=== PATIENT | male | born 1940 | race Caucasian/White ===

== ENCOUNTER → 2016-08-24 | Outpatient (CLI) | payer MEDICARE, BC ==
[~2016-08-24] MED LIST: ALLO100T PO; COLA100C PO; HYDR25TA35 PO; INSU100V3 SQ; MAGN200T2 PO; MYCO200S PO; NYSTPOW30 PO; OMEG1CAP53 PO; OXYC-360 PO; PRED10PA PO; PROT40TA PO; SULF1TAB47 PO; TACR1; TAMS5CAP OR; VALG450 PO; ZETI10TA5 OR; [UNRECOGNIZED DRUG - OTHER] PO
[2016-08-24 09:21] LABS: MICRO ALBUMIN RANDOM URINE RAW 11.3 MG/L (0.0-30.0)
== END ==
LOC: CLAB 08:16
DX: E11.65 Type 2 diabetes mellitus with hyperglycemia (principal)
CPT/HCPCS: 36415; 80053; 80061; 80197; 82043; 83036; 83735; 84100; 85025; 99211; G0463

== ENCOUNTER 2017-02-21 06:26 | Inpatient (IN) | payer MEDICARE, BC ==
[~2017-02-21] VITALS: Ht 175.3 cm; Wt 103.6 kg
[2017-02-21] VITALS (10 sets, daily range): BP systolic 98–180; BP diastolic 58–75; PULSE 56–115; RESP 16–20; TEMP 98.8–101.8; O2SAT 90–97
[2017-02-21] MEDS ORDERED: SODIUM CHLORIDE 0.9% FLUSH 10 ML FLUSH IV FLUSH PRN ×2 (07:15→10:30)
[2017-02-21] MEDS ORDERED: SODIUM CHLOR 0.9% 1000 ML INJ 1,000 ML IV ONE (07:38)
--- NOTE | 2017-02-21 07:56 | PD ---
HPI Chief Complaint: Cold / Flu Symptoms Time Seen by Provider: 07:38 Travel History International Travel<30 days: No Contact w/Intl Traveler<30days: No Traveled to known affect area: No History of Present Illness HPI 76-year-old male with history of diabetes, hypertension, end-stage renal disease , status post renal transplant, on tacrolimus, presents to the ER today because she he has had a few days history of discomfort at the right lower quadrant transplant site, nausea, vomiting, fevers, and cloudy looking urine and dysuria. He has had recent UTIs according to patient's . Modifying Factors: None Associated Signs & Symptoms: Urinary symptoms, pain at renal transplant site, fevers, nausea and vomiting Risk Factors: Renal transplant PFSH Past Medical History Hx Anticoagulant Therapy: Yes (ASA) Arthritis: No Asthma: No Autoimmune Disease: No Heart Rhythm Problems: Yes (murmur per family) Cancer: Yes (prostate cancer treated with radiation, Squamous cell Cancer) Cardiovascular Problems: Yes (Aortic Valve replaced, Stent x1, HTN) High Cholesterol: Yes Chemotherapy: No Chest Pain: No Congestive Heart Failure: No COPD: No Cerebrovascular Accident: No Diabetes: Yes Patient Takes Glucophage: No Endocrine: Yes (partial para thyroidectomy in 12/1986) Gastrointestinal Disorders: Yes (not since the avm small bowel repair in 01/2012 ) GERD: No Genitourinary: Yes (prostate cancer in past ) Hiatal Hernia: No Hypertension: Yes Immune Disorder: No Kidney Stones: No Medical other: Yes (ESRD last HD 04/15/2012) Musculoskeletal: No Neurologic: Yes (Mohs surgery L frontal/Parietal, Mohs surgery various facial sites. ) Psychiatric: No Reproductive: No Respiratory: No Migraines: No Radiation Therapy: Yes Renal Failure: Yes Seizures: No Sickle Cell Disease: No Sleep Apnea: No Thyroid Disease: Yes (see above partial para throidectomy 12/1986) Ulcer: No Tetanus Vaccination: > 5 Years Influenza Vaccination: Yes Past Surgical History Abdominal Surgery: Yes ( KIDNEY TRANSPLANT 2011, endoscoptic repair AVM small bowel ) AICD: No Arteriovenous Shunt: No Cardiac Surgery: Yes (metal cardiac stent placed in 10/01, Aortic valve replacement) Ear Surgery: No Endocrine Surgery: Yes (partial para thyroidectomy) Eye Surgery: No Genitourinary Surgery: Yes (completed prostate ca treatment in 2007 - ) Gynecologic Surgery: No Insulin Pump: No Joint Replacement: No Oral Surgery: No Pacemaker: No Thoracic Surgery: Yes (partial para thyroid edectomy ) Other Surgery: Yes (L ARM AV FISTULA) Social History Alcohol Use: Yes (occaisonaly) Tobacco Use: No Substance Use: No Allergies-Medications (Allergen,Severity, Reaction): Uncoded Allergies: "BLUE CRABS" (Allergy, Severe, Rash, 04/14/12) Reported Meds & Prescriptions Reported Meds & Active Scripts Active Reported [Occuvite Lutein] 2 Mg PO DAILY Vitamin D-1000 (Cholecalciferol) 1,000 Unit Tab 1,000 Units PO DAILY Aspirin 81 Mg Chew 81 Mg CHEW DAILY Pantoprazole (Pantoprazole Sodium) 40 Mg Tab 40 Mg PO DAILY Calcitriol 0.25 Mcg Cap 0.25 Mcg PO DAILY Flomax (Tamsulosin HCl) 0.4 Mg Cap 0.4 Mg PO BID Lovaza (Jqkib-[id number] Ethyl Esters) 1 Gm Cap 1 Gm PO BID Zetia (Ezetimibe) 10 Mg Tab 10 Mg PO HS Furosemide 40 Mg Tab 40 Mg PO DIRECTED Hydralazine (Hydralazine HCl) 100 Mg Tab 50 Mg PO BID Take with meals Losartan (Losartan Potassium) 25 Mg Tab 25 Mg PO DAILY Amlodipine (Amlodipine Besylate) 10 Mg Tab 10 Mg PO DAILY Bystolic (Nebivolol) 5 Mg Tab 5 Mg PO DAILY Prednisone 5 Mg Tab 5 Mg PO DAILY Mycophenolate (Mycophenolate Mofetil) 500 Mg Tab 500 Mg PO BID Tacrolimus 1 Mg Cap 1 Mg PO DAILY Tacrolimus 0.5 Mg Cap 0.5 Mg PO HS Humulin 70-30 Kwikpen Pen Inj (Insulin NPH Isophane-Reg (Human) 70-30 Inj) 300 Unit/3 Ml Pen 20-25 Unit SQ BID Review of Systems Except as stated in HPI: all other systems reviewed are Neg Physical Exam Narrative GENERAL: Well-developed elderly white male patient currently in mild distress. Awake and oriented 3. SKIN: Focused skin assessment warm/dry. HEAD: Atraumatic. Normocephalic. EYES: Pupils equal and round. No scleral icterus. No injection or drainage. ENT: No nasal bleeding or discharge. Mucous membranes pink and moist. NECK: Trachea midline. No JVD. CARDIOVASCULAR: Regular rate and rhythm. No murmur appreciated. RESPIRATORY: No accessory muscle use. Clear to auscultation. Breath sounds equal bilaterally. GASTROINTESTINAL: Abdomen soft, mild right lower quadrant tenderness without guarding or rebound, nondistended. Hepatic and splenic margins not palpable. MUSCULOSKELETAL: No obvious deformities. No clubbing. No cyanosis. No edema. NEUROLOGICAL: Awake and alert. No obvious cranial nerve deficits. Motor grossly within normal limits. Normal speech. PSYCHIATRIC: Appropriate mood and affect; insight and judgment normal. Data Data Last Documented VS Vital Signs Date Time Temp Pulse Resp B/P (MAP) Pulse Ox O2 Delivery O2 Flow Rate FiO2 02/21/17 08:02 100.1 56 16 125/58 (80) 94 Room Air Orders Orders Complete Blood Count With Diff (02/21/17 07:10) Comprehensive Metabolic Panel (02/21/17 07:10) Urinalysis - C+S If Indicated (02/21/17 07:10) Iv Access Insert/Monitor (02/21/17 07:10) Ecg Monitoring (02/21/17 07:10) Oximetry (02/21/17 07:10) Sodium Chloride 0.9% Flush (Ns Flush) (02/21/17 07:15) Lactic Acid Sepsis Protocol (02/21/17 07:38) Blood Culture (02/21/17 07:38) Blood Glucose (02/21/17 07:38) Oxygen Administration (02/21/17 07:38) Sodium Chlor 0.9% 1000 Ml Inj (Ns 1000 M (02/21/17 07:38) Tacrolimus ([id number]) Prograf (02/21/17 07:49) Urine Culture (02/21/17 07:45) Piperacil-Tazo 4.5 Gm Premix (Zosyn 4.5 (02/21/17 08:11) Admit Order (Ed Use Only) (02/21/17 10:08) Labs Laboratory Tests Test 02/21/17 07:45 02/21/17 07:58 White Blood Count 9.0 TH/MM3 Red Blood Count 3.98 MIL/MM3 Hemoglobin 11.8 GM/DL Hematocrit 36.8 % Mean Corpuscular Volume 92.5 FL Mean Corpuscular Hemoglobin 29.7 PG Mean Corpuscular Hemoglobin Concent 32.1 % Red Cell Distribution Width 15.8 % Platelet Count 130 TH/MM3 Mean Platelet Volume 7.1 FL Neutrophils (%) (Auto) 88.3 % Lymphocytes (%) (Auto) 2.1 % Monocytes (%) (Auto) 9.0 % Eosinophils (%) (Auto) 0.2 % Basophils (%) (Auto) 0.4 % Neutrophils # (Auto) 7.9 TH/MM3 Lymphocytes # (Auto) 0.2 TH/MM3 Monocytes # (Auto) 0.8 TH/MM3 Eosinophils # (Auto) 0.0 TH/MM3 Basophils # (Auto) 0.0 TH/MM3 CBC Comment DIFF FINAL Differential Comment Urine Color YELLOW Urine Turbidity CLOUDY Urine pH 5.5 Urine Specific [place] 1.017 Urine Protein 100 mg/dL Urine Glucose (UA) NEG mg/dL Urine Ketones NEG mg/dL Urine Occult Blood MOD Urine Nitrite NEG Urine Bilirubin NEG Urine Urobilinogen LESS THAN 2.0 MG/DL Urine Leukocyte Esterase LARGE Urine RBC /hpf Urine WBC /hpf Urine WBC Clumps MOD Urine Amorphous Sediment OCC Urine Bacteria MOD /hpf Microscopic Urinalysis Comment CULTURE INDICATED Blood Urea Nitrogen 37 MG/DL Creatinine 2.36 MG/DL Random Glucose 99 MG/DL Total Protein 6.1 GM/DL Albumin 3.1 GM/DL Calcium Level 8.3 MG/DL Alkaline Phosphatase 45 U/L Aspartate Amino Transf (AST/SGOT) 20 U/L Alanine Aminotransferase (ALT/SGPT) 14 U/L Total Bilirubin 1.7 MG/DL Sodium Level 139 MEQ/L Potassium Level 4.1 MEQ/L Chloride Level 107 MEQ/L Carbon Dioxide Level 22.3 MEQ/L Anion Gap 10 MEQ/L Estimat Glomerular Filtration Rate 27 ML/MIN Lactic Acid Level 0.9 mmol/L [facility] Medical Decision Making Medical Screen Exam Complete: Yes Emergency Medical Condition: Yes Medical Record Reviewed: Yes Interpretation(s) Laboratory Tests Test 02/21/17 07:45 02/21/17 07:58 Red Blood Count 3.98 MIL/MM3 (4.50-5.90) Hemoglobin 11.8 GM/DL (13.0-17.0) Hematocrit 36.8 % (39.0-51.0) Platelet Count 130 TH/MM3 (150-450) Neutrophils (%) (Auto) 88.3 % (16.0-70.0) Lymphocytes (%) (Auto) 2.1 % (9.0-44.0) Monocytes (%) (Auto) 9.0 % (0.0-8.0) Neutrophils # (Auto) 7.9 TH/MM3 (1.8-7.7) Lymphocytes # (Auto) 0.2 TH/MM3 (1.0-4.8) Urine Turbidity CLOUDY (CLEAR) Urine Protein 100 mg/dL (NEG-TRACE) Urine Occult Blood MOD (NEG) Urine Leukocyte Esterase LARGE (NEG) Urine WBC Clumps MOD (NONE) Urine Bacteria MOD /hpf (NONE) Blood Urea Nitrogen 37 MG/DL (7-18) Creatinine 2.36 MG/DL (0.60-1.30) Total Protein 6.1 GM/DL (6.4-8.2) Albumin 3.1 GM/DL (3.4-5.0) Calcium Level 8.3 MG/DL (8.5-10.1) Total Bilirubin 1.7 MG/DL (0.2-1.0) Estimat Glomerular Filtration Rate 27 ML/MIN (>89) Differential Diagnosis Dehydration versus metabolic issues versus UTI versus sepsis versus transplant rejection Narrative Course Lab work shows worsening renal function and UTI. Truck limits level has been sent. Considering his history of renal transplant, IV antibiotics were initiated after cultures were done and my plan would be to admit the patient for further treatment. Case was discussed with Dr. Monreal for admission. Diagnosis Primary Impression: UTI (urinary tract infection) Additional Impressions: Acute renal failure Kidney transplant status, cadaveric Admitting Information Admitting Physician Requests: Tomy Wright MD Feb 21, 2017 07:56
[2017-02-21 08:00] LABS: AUTOMATED NEUTROPHIL # 7.9 TH/MM3 (1.8-7.7); BASOPHIL % 0.4 % (0.0-2.0); EOSINOPHIL % 0.2 % (0.0-4.0); HEMATOCRIT 36.8 % (39.0-51.0); HEMO FLAGS DIFF FINAL; LYMPH % 2.1 % (9.0-44.0); LYMPHOCYTE # 0.2 TH/MM3 (1.0-4.8); MEAN CELL VOLUME 92.5 FL (80.0-100.0); MEAN CORPUSCULAR HEMOGLOBIN 29.7 PG (27.0-34.0); MEAN CORPUSCULAR HGB CONC 32.1 % (32.0-36.0); NEUT % 88.3 % (16.0-70.0); PLATELET COUNT 130 TH/MM3 (150-450); RED BLOOD COUNT 3.98 MIL/MM3 (4.50-5.90); RED CELL DISTRIBUTION WIDTH 15.8 % (11.6-17.2)
[2017-02-21 08:08] LABS: BACTERIA, URINE MOD /hpf; BLOOD, URINE MOD (NEG); GLUCOSE,URINE NEG (NEG); KETONE, URINE NEG (NEG); NITRITE,URINE NEG (NEG); PH, URINE 5.5 (5.0-8.5); URINE COLOR YELLOW (YELLW/STRAW)
[2017-02-21 08:09] LABS: COMMENT (UR) CULTURE INDICATED; CULTURE IF INDICATED CULTURE INDICATED
[2017-02-21] MEDS ORDERED: PIPERACIL-TAZO 4.5 GM PREMIX 100 ML IV STA (08:11)
[2017-02-21 08:14] LABS: ANION GAP 10 MEQ/L (5-15); AST (GOT) 20 U/L (15-37); BICARBONATE 22.3 MEQ/L (21.0-32.0); BLOOD UREA NITROGEN 37 MG/DL (7-18); CHLORIDE 107 MEQ/L (98-107); GLOMERULAR FILTRATION RATE 27 ML/MIN (>89); POTASSIUM 4.1 MEQ/L (3.5-5.1); SODIUM (NA) 139 MEQ/L (136-145)
[2017-02-21 08:15] LABS: ALT (GPT) 14 U/L (12-78)
[2017-02-21 08:17] LABS: ALKALINE PHOSPHATASE 45 U/L (45-117); TOTAL BILIRUBIN ADULT 1.7 MG/DL (0.2-1.0)
[2017-02-21] MEDS ORDERED: OMEG1CAP53 PO (08:27)
[2017-02-21] MEDS ORDERED: FURO40TA PO (08:27)
[2017-02-21] MEDS ORDERED: AMLO10TA2 PO (08:27)
[2017-02-21] MEDS ORDERED: TACR1CAP PO (08:27)
[2017-02-21] MEDS ORDERED: LOSA25TA PO (08:27)
[2017-02-21] MEDS ORDERED: VITA1000 PO (08:27)
[2017-02-21] MEDS ORDERED: TAMS5CAP PO (08:27)
[2017-02-21] MEDS ORDERED: OCCUVITE LUTEIN PO (08:27)
[2017-02-21] MEDS ORDERED: CALC0.25 PO (08:27)
[2017-02-21] MEDS ORDERED: PRED5TAB PO (08:27)
[2017-02-21] MEDS ORDERED: HYDR-3801 PO (08:27)
[2017-02-21] MEDS ORDERED: MYCO500T PO (08:27)
[2017-02-21] MEDS ORDERED: PANT40TA3 PO (08:27)
[2017-02-21] MEDS ORDERED: ZETI10TA5 PO (08:27)
[2017-02-21] MEDS ORDERED: TACR0.5C PO (08:27)
[2017-02-21] MEDS ORDERED: BYST5TAB2 PO (08:27)
[2017-02-21] MEDS ORDERED: ASPI81CH CHEW (08:27)
[2017-02-21] MEDS ORDERED: INSU1INJ3 SQ (08:27)
[2017-02-21] MEDS ORDERED: VANCOMYCIN INJ 1,000 MG in SODIUM CHLOR 0.9% 250 ML INJ 250 ML IV ONE (10:30)
[2017-02-21] MEDS ORDERED: NALOXONE HCL 0.4 MG/ML AMP IV PRN (10:30)
[2017-02-21] MEDS ORDERED: GLUCAGON 1 MG/ML VIAL OTHER PRN (10:30)
[2017-02-21] MEDS ORDERED: LACTULOSE SYRUP 20 GM/30 ML CUP PO PRN (10:30)
[2017-02-21] MEDS ORDERED: oxyCODONE/ACETAMINOPHEN 5 MG/325 MG TAB PO PRN (10:30)
[2017-02-21] MEDS ORDERED: DEXTROSE 50% IN WATER 50 ML VIAL(D50) IV PRN (10:30)
[2017-02-21] MEDS ORDERED: BISACODYL 10 MG SUPP RECTAL PRN (10:30)
[2017-02-21] MEDS ORDERED: SENNOSIDES 8.6 MG TAB PO PRN (10:30)
[2017-02-21] MEDS ORDERED: PROCHLORPERAZINE 25 MG SUPP RECTAL PRN (10:30)
[2017-02-21] MEDS ORDERED: MAGNESIUM HYDROXIDE SUSP 30 ML CUP PO PRN (10:30)
[2017-02-21] MEDS ORDERED: ACETAMINOPHEN 325 MG TAB PO PRN (10:30)
[2017-02-21] MEDS ORDERED: ONDANSETRON HCL 4 MG/2 ML VIAL IVP PRN (10:30)
[2017-02-21] MEDS ORDERED: ZOLPIDEM TARTRATE 5 MG TAB PO PRN (10:30)
[2017-02-21] MEDS ORDERED: Vancomycin Consult Pharmacy 1 EA OTHER SCH (10:30)
[2017-02-21] MEDS ORDERED: oxyCODONE/ACETAMINOPHEN 10 MG/325 MG TAB PO PRN (10:30)
[2017-02-21] MEDS ORDERED: MORPHINE SULFATE 4 MG/ML INJ IV PRN ×2 (10:30)
--- NOTE | 2017-02-21 10:53 | HHI.HP ---
[facility] No Primary Care Physician Admission Diagnosis UTI/acute renal failure/kidney transplant Diagnoses: (1) Diabetes Diagnosis: Secondary (2) Hypertension Diagnosis: Secondary (3) Acute renal failure Diagnosis: Secondary (4) UTI (urinary tract infection) Diagnosis: Principal (5) Kidney transplant status, cadaveric Diagnosis: Principal Chief Complaint: Feeling lousy flu-like symptoms Travel History International Travel<30 Days: No Contact w/Intl Traveler <30 Da: No Traveled to Known Affected Are: No History of Present Illness 76-year-old male with history of diabetes, hypertension, end-stage renal disease , status post renal transplant, on tacrolimus, for chronic immunosuppression presents to the ER today because he has had a few days history of discomfort at the right lower quadrant transplant site, nausea, vomiting, fevers, and cloudy looking urine and dysuria. He has had recent UTIs according to patient' s . Modifying Factors: None Associated Signs & Symptoms: Urinary symptoms, pain at renal transplant site, fevers, nausea and vomiting Risk Factors: Renal transplant Found to have a urinary tract infection again we will dose with Zosyn and vancomycin with pharmacy to dose. We'll consult nephrology. And will continue to monitor here throughout the admission for any other issues that may arise will place on fluid rehydration and monitor Review of Systems Constitutional: COMPLAINS OF: Diaphoretic episodes, Fatigue, Fever, Chills, DENIES: Weight gain, Weight loss, Dizziness Endocrine: DENIES: Heat/cold intolerance, Polydipsia, Polyuria, Polyphagia Eyes: DENIES: Blurred vision, Diplopia, Eye inflammation, Eye pain, Vision loss Ears, nose, mouth, throat: DENIES: Tinnitus, Hearing loss, Vertigo, Nasal discharge, Odynophagia Respiratory: DENIES: Apneas, Cough, Snoring, Wheezing, Hemoptysis, Sputum production Cardiovascular: DENIES: Chest pain, Palpitations, Syncope, Dyspnea on Exertion , PND Gastrointestinal: COMPLAINS OF: Abdominal pain (right lower quadrant pain over where the kidney transplant list), DENIES: Black stools, Bloody stools, Constipation, Diarrhea, Nausea Genitourinary: DENIES: Sexual dysfunction, Urinary frequency, Urinary incontinence Musculoskeletal: DENIES: Joint pain, Muscle aches, Stiffness, Joint Swelling Integumentary: DENIES: Abnormal pigmentation, Nail changes Hematologic/lymphatic: DENIES: Bruising, Lymphadenopathy Immunologic/allergic: DENIES: Eczema, Urticaria Neurologic: DENIES: Abnormal gait, Headache, Localized weakness, Paresthesias, Seizures, Speech Problems Psychiatric: DENIES: Anxiety, Confusion, Mood changes, Depression, Hallucinations Past Family Social History Past Medical History Chronic aspirin History of aortic valve replacement bioprosthetic History of coronary disease with stent History of hypertension history of hypercholesterolemia. 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 Hypertension History of end-stage renal disease status post kidney transplant in History of Mohs surgery on the left frontal and parietal and Mohs surgery various facial sites due to skin cancer History of radiation therapy History of renal failure status post kidney transplant Past Surgical History History of kidney transplant 2011 Endoscopic repair of an AVM in the small bowel Cardiac stenting September 2008 Aortic valve replacement Partial parathyroidectomy History of left arm AV fistula creation Reported Medications Reported Meds & Active Scripts Active Reported [Occuvite Lutein] 2 Mg PO DAILY Vitamin D-1000 (Cholecalciferol) 1,000 Unit Tab 1,000 Units PO DAILY Aspirin 81 Mg Chew 81 Mg CHEW DAILY Pantoprazole (Pantoprazole Sodium) 40 Mg Tab 40 Mg PO DAILY Calcitriol 0.25 Mcg Cap 0.25 Mcg PO DAILY Flomax (Tamsulosin HCl) 0.4 Mg Cap 0.4 Mg PO BID Lovaza (Sfxqh-8-Gpcc Ethyl Esters) 1 Gm Cap 1 Gm PO BID Zetia (Ezetimibe) 10 Mg Tab 10 Mg PO HS Furosemide 40 Mg Tab 40 Mg PO DIRECTED Hydralazine (Hydralazine HCl) 100 Mg Tab 50 Mg PO BID Take with meals Losartan (Losartan Potassium) 25 Mg Tab 25 Mg PO DAILY Amlodipine (Amlodipine Besylate) 10 Mg Tab 10 Mg PO DAILY Bystolic (Nebivolol) 5 Mg Tab 5 Mg PO DAILY Prednisone 5 Mg Tab 5 Mg PO DAILY Mycophenolate (Mycophenolate Mofetil) 500 Mg Tab 500 Mg PO BID Tacrolimus 1 Mg Cap 1 Mg PO DAILY Tacrolimus 0.5 Mg Cap 0.5 Mg PO HS Humulin 70-30 Kwikpen Pen Inj (Insulin NPH Isophane-Reg (Human) 70-30 Inj) 300 Unit/3 Ml Pen 20-25 Unit SQ BID Allergies: Uncoded Allergies: "BLUE CRABS" (Allergy, Severe, Rash, 04/14/12) Active Ordered Medications Current Medications Sodium Chloride (NS Flush) 2 ml UNSCH PRN IV FLUSH FLUSH AFTER USING IV ACCESS ; Start 02/21/17 at 07:15 Sodium Chloride 1,000 ml @ 1,000 mls/hr Q1H ONCE IV Last administered on 08:02; Start 02/21/17 at 07:38; Stop 02/21/17 at 08:37; Status DC Piperacillin Sod/ Tazobactam Sod 100 ml @ 200 mls/hr ONCE STAT IV Last administered on 02/21/17 08:31; Start 02/21/17 at 08:11; Stop 02/21/17 at 08:40 ; Status DC Dextrose (D50w (Vial) Inj) 50 ml UNSCH PRN IV HYPOGLYCEMIA-SEE COMMENTS; Start 02/21/17 at 10:30 Glucagon (Glucagon Inj) 1 mg UNSCH PRN OTHER HYPOGLYCEMIA-SEE COMMENTS; Start 02/21/17 at 10:30 Insulin Aspart (NovoLOG SUPPLEMENTAL SCALE) 1 ACHS SLIDING SCALE SQ ; Start at 11:00 Sodium Chloride 1,000 ml @ 100 mls/hr Q10H IV ; Start 02/21/17 at 10:19; Status UNV Sodium Chloride (NS Flush) 2 ml UNSCH PRN IV FLUSH FLUSH AFTER USING IV ACCESS ; Start 02/21/17 at 10:30; Status UNV Sodium Chloride (NS Flush) 2 ml BID IV FLUSH ; Start 02/21/17 at 21:00; Status UNV Acetaminophen (Tylenol) 650 mg Q4H PRN PO TEMP > 100.4; Start 02/21/17 at 10:30 ; Status UNV Ondansetron HCl (Zofran Inj) 4 mg Q6H PRN IVP NAUSEA OR VOMITING; Start at 10:30; Status UNV Prochlorperazine (Compazine Supp) 25 mg Q12H PRN DE NAUSEA OR VOMITING; Start 02/21/17 at 10:30; Status UNV Zolpidem Tartrate (Ambien) 5 mg HS PRN PO INSOMNIA; Start 02/21/17 at 10:30; Status UNV Acetaminophen (Tylenol) 650 mg Q6H PRN PO PAIN SCALE 1 TO 2; Start 02/21/17 at 10:30; Status UNV Oxycodone/ Acetaminophen (Percocet 5-325 Mg) 1 tab Q6H PRN PO PAIN SCALE 3 TO 5; Start 02/21/17 at 10:30; Status UNV Oxycodone/ Acetaminophen (Percocet 10-325 Mg) 1 tab Q6H PRN PO PAIN SCALE 6 TO 10; Start 02/21/17 at 10:30; Status UNV Morphine Sulfate (Morphine Inj) 2 mg Q3H PRN IV Pain 3-5; if unable to take PO ; Start 02/21/17 at 10:30; Status UNV Morphine Sulfate (Morphine Inj) 4 mg Q3H PRN IV Pain 6-10;if unable to take PO ; Start 02/21/17 at 10:30; Status UNV Naloxone HCl (Narcan Inj) 0.4 mg UNSCH PRN IV SEE LABEL COMMENTS; Start at 10:30; Status UNV Senna/Docusate Sodium (Lena-Colace) 1 tab BID PO ; Start 02/21/17 at 21:00; Status UNV Magnesium Hydroxide (Milk Of Magnesia Liq) 30 ml Q12H PRN PO MILD - MODERATE CONSTIPATION; Start 02/21/17 at 10:30; Status UNV Sennosides (Senokot) 17.2 mg Q12H PRN PO MODERATE - SEVERE CONSTIPATION; Start 02/21/17 at 10:30; Status UNV Bisacodyl (Dulcolax Supp) 10 mg DAILY PRN RECTAL SEVERE CONSITIPATION; Start at 10:30; Status UNV Lactulose (Lactulose Liq) 30 ml DAILY PRN PO SEVERE CONSITIPATION; Start at 10:30; Status UNV Amlodipine Besylate (Norvasc) 10 mg DAILY PO ; Start 02/22/17 at 09:00; Status UNV Aspirin (Aspirin Chew) 81 mg DAILY CHEW ; Start 02/22/17 at 09:00; Status UNV Calcitriol (Rocaltrol) 0.25 mcg DAILY PO ; Start 02/22/17 at 09:00; Status UNV Cholecalciferol (Vitamin D3) 1,000 units DAILY PO ; Start 02/22/17 at 09:00; Status UNV EZETIMIBE (Zetia) 10 mg HS PO ; Start 02/21/17 at 21:00; Status UNV Furosemide (Lasix) 40 mg DAILY PO ; Start 02/22/17 at 09:00; Status UNV Hydralazine HCl (Apresoline) 50 mg BID PO ; Start 02/21/17 at 21:00; Status UNV Mycophenolate Mofetil (Cellcept) 500 mg BID PO ; Start 02/21/17 at 21:00; Status UNV Nebivolol (Bystolic) 5 mg DAILY PO ; Start 02/22/17 at 09:00; Status UNV Pantoprazole Sodium (Protonix) 40 mg DAILY PO ; Start 02/22/17 at 09:00; Status UNV Prednisone (Deltasone) 5 mg DAILY PO ; Start 02/22/17 at 09:00; Status UNV Tacrolimus (Prograf) 0.5 mg HS PO ; Start 02/21/17 at 21:00; Status UNV Tacrolimus (Prograf) 1 mg DAILY PO ; Start 02/22/17 at 09:00; Status UNV Tamsulosin HCl (Flomax) 0.4 mg BID PO ; Start 02/21/17 at 21:00; Status UNV Non-Formulary Medication 20 unit BID SQ ; Start 02/21/17 at 21:00; Status UNV Non-Formulary Medication 1 gm BID PO ; Start 02/21/17 at 21:00; Status UNV Non-Formulary Medication 2 mg DAILY PO ; Start 02/22/17 at 09:00; Status UNV Family History Hypertension and diabetes heart disease Social History Denies any tobacco seldom alcohol denies any illicit Retired from [employer] Physical Exam Vital Signs Vital Signs Date Time Temp Pulse Resp B/P (MAP) Pulse Ox O2 Delivery O2 Flow Rate FiO2 02/21/17 08:02 100.1 56 16 125/58 (80) 94 Room Air 02/21/17 07:50 16 94 Room Air 02/21/17 06:29 100.3 115 16 157/64 (95) 90 Room Air Physical Exam GENERAL: This is a well-nourished, well-developed patient, in no apparent distress. SKIN: No rashes, ecchymoses or lesions. Cool and dry. HEAD: Atraumatic. Normocephalic. No temporal or scalp tenderness. EYES: Pupils equal round and reactive. Extraocular motions intact. No scleral icterus. No injection or drainage. ENT: Nose without bleeding, purulent drainage or septal hematoma. Throat without erythema, tonsillar hypertrophy or exudate. Uvula midline. Airway patent. Tongue is midline NECK: Trachea midline. No JVD or lymphadenopathy. Supple, nontender, no meningeal signs. CARDIOVASCULAR: Regular rate and rhythm without murmurs, gallops, or rubs. S1 and S2 no S3 or S4 no thrill RESPIRATORY: Clear to auscultation. Breath sounds equal bilaterally. No wheezes , rales, or rhonchi. GASTROINTESTINAL: Abdomen soft, non-tender, nondistended. No hepato-splenomegaly , or palpable masses. No guarding. Some tenderness in the right lower quadrant where his kidney transplant is MUSCULOSKELETAL: Extremities without clubbing, cyanosis, or edema. No joint tenderness, effusion, or edema noted. No calf tenderness. Negative Homans sign bilaterally. NEUROLOGICAL: Awake and alert. Cranial nerves II through XII intact. Motor and sensory grossly within normal limits. Five out of 5 muscle strength in all muscle groups. Normal speech. Insight and judgment are good mood and behavior are appropriate Laboratory Laboratory Tests Test 02/21/17 07:45 02/21/17 07:58 White Blood Count 9.0 Red Blood Count 3.98 Hemoglobin 11.8 Hematocrit 36.8 Mean Corpuscular Volume 92.5 Mean Corpuscular Hemoglobin 29.7 Mean Corpuscular Hemoglobin Concent 32.1 Red Cell Distribution Width 15.8 Platelet Count 130 Mean Platelet Volume 7.1 Neutrophils (%) (Auto) 88.3 Lymphocytes (%) (Auto) 2.1 Monocytes (%) (Auto) 9.0 Eosinophils (%) (Auto) 0.2 Basophils (%) (Auto) 0.4 Neutrophils # (Auto) 7.9 Lymphocytes # (Auto) 0.2 Monocytes # (Auto) 0.8 Eosinophils # (Auto) 0.0 Basophils # (Auto) 0.0 CBC Comment DIFF FINAL Differential Comment Urine Color YELLOW Urine Turbidity CLOUDY Urine pH 5.5 Urine Specific Randall 1.017 Urine Protein 100 Urine Glucose (UA) NEG Urine Ketones NEG Urine Occult Blood MOD Urine Nitrite NEG Urine Bilirubin NEG Urine Urobilinogen LESS THAN 2.0 Urine Leukocyte Esterase LARGE Urine RBC Urine WBC Urine WBC Clumps MOD Urine Amorphous Sediment OCC Urine Bacteria MOD Microscopic Urinalysis Comment CULTURE INDICATED Blood Urea Nitrogen 37 Creatinine 2.36 Random Glucose 99 Total Protein 6.1 Albumin 3.1 Calcium Level 8.3 Alkaline Phosphatase 45 Aspartate Amino Transf (AST/SGOT) 20 Alanine Aminotransferase (ALT/SGPT) 14 Total Bilirubin 1.7 Sodium Level 139 Potassium Level 4.1 Chloride Level 107 Carbon Dioxide Level 22.3 Anion Gap 10 Estimat Glomerular Filtration Rate 27 Lactic Acid Level 0.9 Date/Time Source Procedure Growth Status 02/21/17 07:55 Blood Peripheral Aerobic Blood Culture Pending Received 02/21/17 07:55 Blood Peripheral Anaerobic Blood Culture Pending Received 02/21/17 07:45 Urine Clean Catch Urine Culture Pending Received Result Diagram: 02/21/17 0745 02/21/17 0745 Caprini VTE Risk Assessment Caprini VTE Risk Assessment: Mod/High Risk (score >= 2) Caprini Risk Assessment Model Point Value = 1 Point Value = 2 Point Value = 3 Point Value = 5 Age 41-60 Minor surgery BMI > 25 kg/m2 Swollen legs Varicose veins or History of unexplained or recurrent spontaneous Oral contraceptives or hormone replacement Sepsis (< 1 month) Serious lung disease, including pneumonia (< 1 month) Abnormal pulmonary function Acute myocardial infarction Congestive heart failure (< 1 month) History of inflammatory bowel disease Medical patient at bed rest Age 61-74 Arthroscopic surgery Major open surgery (> 45 min) Laparoscopic surgery (> 45 min) Malignancy Confined to bed (> 72 hours) Immobilizing plaster cast Central venous access Age >= 75 History of VTE Family history of VTE Factor V Leiden Prothrombin [id number] Lupus anticoagulant Anticardiolipin antibodies Elevated serum homocysteine Heparin-induced thrombocytopenia Other congenital or acquired thrombophilia Stroke (< 1 month) Elective arthroplasty Hip, pelvis, or leg fracture Acute spinal cord injury (< 1 month) Prophylaxis Regimen Total Risk Factor Score Risk Level Prophylaxis Regimen 0-1 Low Early ambulation 2 Moderate Order ONE of the following: *Sequential Compression Device (SCD) *Heparin 5000 units SQ BID 3-4 Higher Order ONE of the following medications: *Heparin 5000 units SQ TID *Enoxaparin/Lovenox 40 mg SQ daily (WT < 150 kg, CrCl > 30 mL/min) *Enoxaparin/Lovenox 30 mg SQ daily (WT < 150 kg, CrCl > 10-29 mL/min) *Enoxaparin/Lovenox 30 mg SQ BID (WT < 150 kg, CrCl > 30 mL/min) AND/OR *Sequential Compression Device (SCD) 5 or more Highest Order ONE of the following medications: *Heparin 5000 units SQ TID (Preferred with Epidurals) *Enoxaparin/Lovenox 40 mg SQ daily (WT < 150 kg, CrCl > 30 mL/min) *Enoxaparin/Lovenox 30 mg SQ daily (WT < 150 kg, CrCl > 10-29 mL/min) *Enoxaparin/Lovenox 30 mg SQ BID (WT < 150 kg, CrCl > 30 mL/min) AND *Sequential Compression Device (SCD) Assessment and Plan Problem List: (1) Hyperlipidemia ICD Code: E78.5 - Hyperlipidemia, unspecified (2) Kidney transplant status, cadaveric ICD Code: Z94.0 - Kidney transplant status Status: Acute (3) Hypertension ICD Code: I10 - Essential (primary) hypertension Status: Acute (4) Diabetes ICD Code: E11.9 - Type 2 diabetes mellitus without complications Status: Acute (5) UTI (urinary tract infection) ICD Code: N39.0 - Urinary tract infection, site not specified Status: Acute (6) Acute renal failure ICD Code: N17.9 - Acute kidney failure, unspecified Status: Acute (7) GERD (gastroesophageal reflux disease) ICD Code: K21.9 - Gastro-esophageal reflux disease without esophagitis (8) BPH (benign prostatic hyperplasia) ICD Code: N40.0 - Benign prostatic hyperplasia without lower urinary tract symptoms (9) Immunosuppression ICD Code: D89.9 - Disorder involving the immune mechanism, unspecified Assessment and Plan Patient is a 76-year-old gentleman. With a history of end-stage renal disease status post renal transplant in 2011. With diabetes and hypertension hyperlipidemia BPH chronic immunosuppression for the kidney transplant and diabetes presents for flulike symptoms found to have an active urinary tract infection. Urinary tract infection will be treated with home medications except for the arm. Continue on fluids and. Antibiotics with Zosyn and vancomycin with pharmacy to dose We'll consult nephrology. We'll get an ultrasound of the transplant kidney Continue on the chronic immunosuppression Diabetes mellitus. Continue on sliding scale coverage and Accu-Cheks before meals and at bedtime continue on NPH as at home Diabetic diet End-stage renal disease status post kidney transplant 2011 we'll check kidney ultrasound of the transplant kidney continue fluids and antibiotics hold any nephrotoxic drugs continue chronic immunosuppression Hypertension continue home medications except for ARB GERD continue on Protonix BPH continue on Flomax Hyperlipidemia continue on LOVAZA and Zetia Chronic immunosuppression with prednisone and mycophenolate and tacrolimus Await levels Consult nephrology Continue fluids and antibiotics and will follow throughout the admission We'll get case management physical therapy to eval and treat Code Status Full code Discussed Condition With Discussed with RN discussed with ER physician and discussed with patient Physician Certification 2 Midnight Certification Type: Admission for Inpatient Services Order for Inpatient Services The services are ordered in accordance with Medicare regulations or non- Medicare payer requirements, as applicable. In the case of services not specified as inpatient-only, they are appropriately provided as inpatient services in accordance with the 2-midnight benchmark. Estimated LOS (days): 3 3 days is the estimated time the patient will need to remain in the hospital, assuming treatment plan goals are met and no additional complications. Post-Hospital Plan: Not yet determined Ole Monreal DO Feb 21, 2017 10:53
[2017-02-21] MEDS: INSULIN ASPART SUPPLEMENTAL SCALE SQ SCH ×4 (11:00→21:47)
--- NOTE | 2017-02-21 13:07 | RADRPT ---
EXAM DATE/TIME: 02/21/2017 11:59 [facility] COMPARISON: US KIDNEY / TRANSPLANT, May 20, 2012, 15:02. INDICATIONS : Increased lab values. MEDICAL HISTORY : Hypercholesterolemia. Hypertension. Hearing loss. Skin cancer. Anticoagulant therapy. Heart murmur. Prostate cancer. Renal railure. Radiation therapy. Diabetes. Measles. Blood tr ansfusion. SURGICAL HISTORY : Coronary artery stent. Partial parathyroidectomy. Aortic valve replacement . Right lower quadrant renal transplant. Mohs surgery. Left AV fistula. Smal bowel repair. ENCOUNTER: Subsequent ACUITY: 3 days PAIN SCORE: 1/10 LOCATION: Right lower quadrant MEASUREMENTS: TRANSPLANT KIDNEY: 12.3 x 6.4 x 6.3 cm LOCATION: Right lower quadrant. ARCUATE ARTERIES RESISTIVE INDEX: Upper - 0.8 Mid - 0.8 Lower - 0.8 RA/EIA Ratio: 0.8 MAIN RENAL ARTERY VELOCITY: (cm/sec): 174 MAIN RENAL VEIN: Patent EXTERNAL ILIAC ARTERY VELOCITY (cm/sec): 224 * NORMAL DOPPLER FINDINGS Arcuate arteries - RI = 0.6 - 0.8 Renal artery = under 200 cm/sec Renal vein = May be monophasic with continuous flow or demonstrate some pulsatility with cardiac cycl e FINDINGS: TRANSPLANT KIDNEY: Normal cortical thickness and echotexture. No hydronephrosis, stone, or mass. No peritransplant fluid collection. URINARY BLADDER: Within normal limits given the degree of distension. CONCLUSION: There is no hydronephrosis.. I see no ancillary signs of rejection. Ole Godoy MD FACR on February 21, 2017 at 13:04 Board Certified Radiologist. This report was verified electronically.
[2017-02-21] MEDS: SODIUM CHLOR 0.9% 1000 ML INJ 1,000 ML IV SCH ×2 (13:31→20:19)
[2017-02-21] MEDS ORDERED: VANCOMYCIN INJ 1,500 MG in SODIUM CHLORID 0.9% 500 ML INJ 500 ML IV ONE (14:00)
--- NOTE | 2017-02-21 14:11 | PD.CONS ---
HPI Service Nephrology Consult Requested By Dr. Monreal Reason for Consult Kidney transplant Primary Care Physician No Primary Care Physician History of Present Illness Patient is a 76-year-old male with history of kidney transplant on 04/14/12, he has postoperative aortic valve stenosis and this was successfully repaired, she is admitted with urinary tract infection, from now some dysuria burning, his creatinine is slightly elevated and he is getting iv antibiotics and hydration he is maintained on prednisone 5 mg, prograf is 0.5 mg at night and 1 mg in the morning, cellcept 500 twice a day Review of Systems Constitutional: COMPLAINS OF: Fatigue Genitourinary: COMPLAINS OF: Dysuria Past Family Social History Allergies: Uncoded Allergies: "BLUE CRABS" (Allergy, Severe, Rash, 04/14/12) Past Medical History End-stage renal disease post kidney transplant in 2011 AV replacement Hypertension Kidney transplant Hyperlipidemia Diabetes GERD Past Surgical History Kidney transplant Cardiac surgery aVR History of endoscopy AV fistula Cardiac stent Reported Medications Reported Meds & Active Scripts Active Reported [Occuvite Lutein] 2 Mg PO DAILY Vitamin D-1000 (Cholecalciferol) 1,000 Unit Tab 1,000 Units PO DAILY Aspirin 81 Mg Chew 81 Mg CHEW DAILY Pantoprazole (Pantoprazole Sodium) 40 Mg Tab 40 Mg PO DAILY Calcitriol 0.25 Mcg Cap 0.25 Mcg PO DAILY Flomax (Tamsulosin HCl) 0.4 Mg Cap 0.4 Mg PO BID Lovaza (Hgotm-7-Bdfx Ethyl Esters) 1 Gm Cap 1 Gm PO BID Zetia (Ezetimibe) 10 Mg Tab 10 Mg PO HS Furosemide 40 Mg Tab 40 Mg PO DIRECTED Hydralazine (Hydralazine HCl) 100 Mg Tab 50 Mg PO BID Take with meals Losartan (Losartan Potassium) 25 Mg Tab 25 Mg PO DAILY Amlodipine (Amlodipine Besylate) 10 Mg Tab 10 Mg PO DAILY Bystolic (Nebivolol) 5 Mg Tab 5 Mg PO DAILY Prednisone 5 Mg Tab 5 Mg PO DAILY Mycophenolate (Mycophenolate Mofetil) 500 Mg Tab 500 Mg PO BID Tacrolimus 1 Mg Cap 1 Mg PO DAILY Tacrolimus 0.5 Mg Cap 0.5 Mg PO HS Humulin 70-30 Kwikpen Pen Inj (Insulin NPH Isophane-Reg (Human) 70-30 Inj) 300 Unit/3 Ml Pen 20-25 Unit SQ BID Active Ordered Medications Current Medications Medications (Trade) Dose Ordered Sig/Larry Route Start Time Stop Time Status Last Admin (D50w (Vial) Inj) 50 ml UNSCH PRN IV 02/21/17 10:30 (Glucagon Inj) 1 mg UNSCH PRN OTHER 02/21/17 10:30 (NovoLOG SUPPLEMENTAL SCALE) 1 ACHS SLIDING SCALE SQ 02/21/17 11:00 Sodium Chloride 1,000 ml @ 100 mls/hr Q10H IV 02/21/17 10:19 02/21/17 13:31 (NS Flush) 2 ml UNSCH PRN IV FLUSH 02/21/17 10:30 (NS Flush) 2 ml BID IV FLUSH 02/21/17 21:00 (Tylenol) 650 mg Q4H PRN PO 02/21/17 10:30 UNV (Zofran Inj) 4 mg Q6H PRN IVP 02/21/17 10:30 (Compazine Supp) 25 mg Q12H PRN KS 02/21/17 10:30 UNV (Ambien) 5 mg HS PRN PO 02/21/17 10:30 (Tylenol) 650 mg Q6H PRN PO 02/21/17 10:30 UNV (Percocet 5-325 Mg) 1 tab Q6H PRN PO 02/21/17 10:30 (Percocet 10-325 Mg) 1 tab Q6H PRN PO 02/21/17 10:30 (Morphine Inj) 2 mg Q3H PRN IV 02/21/17 10:30 (Morphine Inj) 4 mg Q3H PRN IV 02/21/17 10:30 (Narcan Inj) 0.4 mg UNSCH PRN IV 02/21/17 10:30 (Lena-Colace) 1 tab BID PO 02/21/17 21:00 (Milk Of Magnesia Liq) 30 ml Q12H PRN PO 02/21/17 10:30 (Senokot) 17.2 mg Q12H PRN PO 02/21/17 10:30 (Dulcolax Supp) 10 mg DAILY PRN RECTAL 02/21/17 10:30 (Lactulose Liq) 30 ml DAILY PRN PO 02/21/17 10:30 (Norvasc) 10 mg DAILY PO 02/22/17 09:00 (Aspirin Chew) 81 mg DAILY CHEW 02/22/17 09:00 (Rocaltrol) 0.25 mcg DAILY PO 02/22/17 09:00 (Vitamin D3) 1,000 units DAILY PO 02/22/17 09:00 (Zetia) 10 mg HS PO 02/21/17 21:00 (Apresoline) 50 mg BID PO 02/21/17 21:00 UNV (Cellcept) 500 mg BID PO 02/21/17 21:00 UNV (Bystolic) 5 mg DAILY PO 02/22/17 09:00 (Protonix) 40 mg DAILY PO 02/22/17 09:00 (Deltasone) 5 mg DAILY PO 02/22/17 09:00 (Prograf) 0.5 mg HS PO 02/21/17 21:00 UNV (Prograf) 1 mg DAILY PO 02/22/17 09:00 UNV (Flomax) 0.4 mg BID PO 02/21/17 21:00 UNV Non-Formulary Medication 20 unit BID SQ 02/21/17 21:00 UNV Non-Formulary Medication 1 gm BID PO 02/21/17 21:00 UNV Non-Formulary Medication 2 mg DAILY PO 02/22/17 09:00 UNV Piperacillin Sod/ Tazobactam Sod 50 ml @ 100 mls/hr Q8H IV 02/21/17 16:00 Pharmacy Profile Note 0 ml @ 0 mls/hr UNSCH OTHER 02/21/17 10:30 Vancomycin HCl 1500 mg/Sodium Chloride 515 ml @ 250 mls/hr ONCE ONCE IV 02/21/17 14:00 02/21/17 16:03 Family History Noncontributory Social History Denies smoking or alcohol use Physical Exam Vital Signs Vital Signs Date Time Temp Pulse Resp B/P (MAP) Pulse Ox O2 Delivery O2 Flow Rate FiO2 02/21/17 11:49 98.8 62 20 160/69 (99) 97 Room Air 02/21/17 08:02 100.1 56 16 125/58 (80) 94 Room Air 02/21/17 07:50 16 94 Room Air 02/21/17 06:29 100.3 115 16 157/64 (95) 90 Room Air Physical Exam GENERAL: Well-nourished, well-developed patient. SKIN: Warm and dry. HEAD: Normocephalic. EYES: No scleral icterus. No injection or drainage. NECK: Supple, trachea midline. No JVD or lymphadenopathy. CARDIOVASCULAR: Regular rate and rhythm without murmurs, gallops, or rubs. RESPIRATORY: Breath sounds equal bilaterally. No accessory muscle use. GASTROINTESTINAL: Abdomen soft, non-tender, nondistended. EXTREMITIES: No cyanosis, or edema. NEUROLOGICAL: Awake, alert, and oriented x 3. Non-focal. Laboratory Laboratory Tests Test 02/21/17 07:45 02/21/17 07:58 02/21/17 10:55 White Blood Count 9.0 Red Blood Count 3.98 Hemoglobin 11.8 Hematocrit 36.8 Mean Corpuscular Volume 92.5 Mean Corpuscular Hemoglobin 29.7 Mean Corpuscular Hemoglobin Concent 32.1 Red Cell Distribution Width 15.8 Platelet Count 130 Mean Platelet Volume 7.1 Neutrophils (%) (Auto) 88.3 Lymphocytes (%) (Auto) 2.1 Monocytes (%) (Auto) 9.0 Eosinophils (%) (Auto) 0.2 Basophils (%) (Auto) 0.4 Neutrophils # (Auto) 7.9 Lymphocytes # (Auto) 0.2 Monocytes # (Auto) 0.8 Eosinophils # (Auto) 0.0 Basophils # (Auto) 0.0 CBC Comment DIFF FINAL Differential Comment Urine Color YELLOW Urine Turbidity CLOUDY Urine pH 5.5 Urine Specific [place] 1.017 Urine Protein 100 Urine Glucose (UA) NEG Urine Ketones NEG Urine Occult Blood MOD Urine Nitrite NEG Urine Bilirubin NEG Urine Urobilinogen LESS THAN 2.0 Urine Leukocyte Esterase LARGE Urine RBC Urine WBC Urine WBC Clumps MOD Urine Amorphous Sediment OCC Urine Bacteria MOD Microscopic Urinalysis Comment CULTURE INDICATED Blood Urea Nitrogen 37 Creatinine 2.36 Random Glucose 99 Total Protein 6.1 Albumin 3.1 Calcium Level 8.3 Alkaline Phosphatase 45 Aspartate Amino Transf (AST/SGOT) 20 Alanine Aminotransferase (ALT/SGPT) 14 Total Bilirubin 1.7 Sodium Level 139 Potassium Level 4.1 Chloride Level 107 Carbon Dioxide Level 22.3 Anion Gap 10 Estimat Glomerular Filtration Rate 27 Lactic Acid Level 0.9 Tacrolimus (Prograf) Level 3.1 Total Creatine Kinase 127 Date/Time Source Procedure Growth Status 02/21/17 07:55 Blood Peripheral Aerobic Blood Culture Pending Received 02/21/17 07:55 Blood Peripheral Anaerobic Blood Culture Pending Received 02/21/17 07:45 Urine Clean Catch Urine Culture Pending Received Result Diagram: 8/30/17 0745 02/21/17 0745 Imaging Last Impressions Renal Ultrasound 02/21/17 0000 Signed Impressions: Service Date/Time: Tuesday, February 21, 2017 11:59 - CONCLUSION: There is no hydronephrosis.. I see no ancillary signs of rejection. Ole Godoy MD FACR Assessment and Plan Problem List: (1) Kidney transplant status, cadaveric ICD Codes: Z94.0 - Kidney transplant status Status: Acute Plan: Agree with IV antibiotics follow renal functions continue with her immunosuppressive medications follow cultures Ultrasound was reviewed there is no evidence of rejection I asked him to keep himself well-hydrated Follow BMP (2) Immunosuppression ICD Codes: D89.9 - Disorder involving the immune mechanism, unspecified Plan: Continue his prednisone, Prograf and CellCept (3) UTI (urinary tract infection) ICD Codes: N39.0 - Urinary tract infection, site not specified Status: Acute Plan: Vancomycin and Zosyn as given (4) Diabetes ICD Codes: E11.9 - Type 2 diabetes mellitus without complications Status: Acute Plan: Continue to monitor Problem Qualifiers (1) UTI (urinary tract infection): Qualified Codes: N30.01 - Acute cystitis with hematuria (2) Diabetes: Tila Benotn MD Feb 21, 2017 14:11
[2017-02-21] MEDS: PIPERACIL-TAZO 3.375 GM PREMIX 50 ML IV SCH (17:04)
[2017-02-21] MEDS: MYCOPHENOLATE MOFETIL 500 MG TAB PO SCH (18:20)
[2017-02-21] MEDS: SODIUM CHLORIDE 0.9% FLUSH 10 ML FLUSH IV FLUSH SCH (21:00)
[2017-02-21] MEDS ORDERED: OMEGA ACID ETHYL ESTERS PO SCH (21:00)
[2017-02-21] MEDS: DOCUSATE SODIUM 50 MG/SENNA 8.6 MG TAB PO SCH (21:00)
[2017-02-21] MEDS: EZETIMIBE 10 MG TAB PO SCH (21:42)
[2017-02-21] MEDS: TAMSULOSIN HCL 0.4 MG CAP PO SCH (21:42)
[2017-02-21] MEDS: hydrALAZINE HCL 50 MG TAB PO SCH (21:42)
[2017-02-21] MEDS: INSULIN HUMAN NPH/R 70/30 1,000 UNITS/10 ML VIAL SQ SCH (21:47)
[2017-02-21] MEDS: TACROLIMUS 0.5 MG CAP PO SCH (22:23)
[2017-02-22] VITALS (11 sets, daily range): BP systolic 133–164; BP diastolic 65–91; PULSE 56–68; RESP 16–18; TEMP 98.8–100.1; O2SAT 91–99
[2017-02-22] MEDS: PIPERACIL-TAZO 3.375 GM PREMIX 50 ML IV SCH ×3 (00:31→16:15)
[2017-02-22] MEDS: ACETAMINOPHEN 325 MG TAB PO PRN ×3 (00:37→20:41)
[2017-02-22] MEDS: MYCOPHENOLATE MOFETIL 500 MG TAB PO SCH ×2 (05:40→16:15)
[2017-02-22] MEDS: INSULIN ASPART SUPPLEMENTAL SCALE SQ SCH ×4 (06:05→20:52)
[2017-02-22] MEDS: SODIUM CHLOR 0.9% 1000 ML INJ 1,000 ML IV SCH ×2 (06:05→16:15)
[2017-02-22 06:55] LABS: AUTOMATED NEUTROPHIL # 6.1 TH/MM3 (1.8-7.7); BASOPHIL % 0.2 % (0.0-2.0); HEMATOCRIT 36.8 % (39.0-51.0); HEMO FLAGS DIFF FINAL; LYMPH % 3.6 % (9.0-44.0); LYMPHOCYTE # 0.2 TH/MM3 (1.0-4.8); MEAN CELL VOLUME 93.2 FL (80.0-100.0); MEAN CORPUSCULAR HEMOGLOBIN 30.1 PG (27.0-34.0); MEAN CORPUSCULAR HGB CONC 32.3 % (32.0-36.0); NEUT % 87.2 % (16.0-70.0); PLATELET COUNT 121 TH/MM3 (150-450); RED BLOOD COUNT 3.94 MIL/MM3 (4.50-5.90); RED CELL DISTRIBUTION WIDTH 15.4 % (11.6-17.2)
[2017-02-22 07:01] LABS: ANION GAP 12 MEQ/L (5-15); AST (GOT) 23 U/L (15-37); BICARBONATE 22.1 MEQ/L (21.0-32.0); BLOOD UREA NITROGEN 37 MG/DL (7-18); CHLORIDE 107 MEQ/L (98-107); GLOMERULAR FILTRATION RATE 25 ML/MIN (>89); MAGNESIUM 2.1 MG/DL (1.5-2.5); POTASSIUM 4.2 MEQ/L (3.5-5.1); SODIUM (NA) 141 MEQ/L (136-145)
[2017-02-22 07:10] LABS: ALKALINE PHOSPHATASE 40 U/L (45-117); ALT (GPT) 18 U/L (12-78); FREE T4 1.15 NG/DL (0.76-1.46); TOTAL BILIRUBIN ADULT 1.1 MG/DL (0.2-1.0)
[2017-02-22] MEDS: predniSONE 5 MG TAB PO SCH (08:17)
[2017-02-22] MEDS: CALCITRIOL 0.25 MCG CAP PO SCH (08:17)
[2017-02-22] MEDS: NEBIVOLOL 5 MG TAB PO SCH (08:17)
[2017-02-22] MEDS: PANTOPRAZOLE SOD 40 MG DELAYED RELEASE TAB PO SCH (08:17)
[2017-02-22] MEDS: MULTIVITAMIN-OPHTHALMIC 1 TAB PO SCH (08:17)
[2017-02-22] MEDS: DOCUSATE SODIUM 50 MG/SENNA 8.6 MG TAB PO SCH ×2 (08:17→20:42)
[2017-02-22] MEDS: hydrALAZINE HCL 50 MG TAB PO SCH ×2 (08:17→20:39)
[2017-02-22] MEDS: TACROLIMUS 1 MG CAP PO SCH (08:17)
[2017-02-22] MEDS: TAMSULOSIN HCL 0.4 MG CAP PO SCH ×2 (08:18→20:41)
[2017-02-22] MEDS: INSULIN HUMAN NPH/R 70/30 1,000 UNITS/10 ML VIAL SQ SCH ×2 (08:22→20:51)
[2017-02-22] MEDS: CHOLECALCIFEROL (VIT D3) 1000 UNIT TAB PO SCH (08:24)
[2017-02-22] MEDS: SODIUM CHLORIDE 0.9% FLUSH 10 ML FLUSH IV FLUSH SCH ×2 (08:29→20:40)
[2017-02-22] MEDS ORDERED: ASPIRIN 81 MG CHEW TAB CHEW SCH (09:00)
[2017-02-22] MEDS ORDERED: FUROSEMIDE 40 MG TAB PO SCH (09:00)
--- NOTE | 2017-02-22 11:02 | HHI.NPPN ---
Subjective History of Present Illness 76 year old Kidney transplant, Review of Systems General Constitutional: Fatigue Objective Data Data Vital Signs Date Time Temp Pulse Resp B/P (MAP) Pulse Ox O2 Delivery O2 Flow Rate FiO2 02/22/17 08:00 100.1 68 18 164/71 (102) 92 02/22/17 07:00 56 02/22/17 05:58 95 02/22/17 03:45 60 02/22/17 03:36 99.0 58 138/65 (89) 95 02/22/17 02:00 99.0 138/65 (89) 02/21/17 23:00 101.1 73 180/72 (108) 93 02/21/17 23:00 75 02/21/17 22:55 99.4 69 98/74 (82) 93 02/21/17 19:00 64 02/21/17 15:39 100.1 61 18 142/66 (91) 92 02/21/17 15:10 02/21/17 14:57 95 21 02/21/17 14:50 101.8 66 18 176/75 (108) 95 Room Air 02/21/17 11:49 98.8 62 20 160/69 (99) 97 Room Air -: 02/22/17 0455 02/22/17 0455 Physical Exam General Appearance: Well Developed Neck Neck Exam: Neck Supple Pulmonary Resp Exam: Clear Bilaterally, Breath Sounds Equal Cardiology CV Exam: Regular, Normal Sinus Rhythm Gastrointestinal/Abdomen GI Exam: Soft, Non-Tender, Bowel Sounds Present Extremeties Extremities Exam: Trace Edema Assessment/Plan Problem List: (1) Kidney transplant status, cadaveric ICD Codes: Z94.0 - Kidney transplant status Status: Acute Plan: c/o hematuria s/p Louise now Blood in bag Urology consult placed continue with antibiotic, cr slightly up hematuria Follow BMP (2) Immunosuppression ICD Codes: D89.9 - Disorder involving the immune mechanism, unspecified Plan: Continue his prednisone, Prograf and CellCept (3) UTI (urinary tract infection) ICD Codes: N39.0 - Urinary tract infection, site not specified Status: Acute Plan: Vancomycin and Zosyn as given (4) Diabetes ICD Codes: E11.9 - Type 2 diabetes mellitus without complications Status: Acute Plan: Continue to monitor Tila Benton MD Feb 22, 2017 11:02
[2017-02-22 17:01] LABS: HEMOGLOBIN A1a 0.9 %; HEMOGLOBIN Ao 83.1 %; HEMOGLOBIN LA1C 2.4 %; HEMOGLOBIN P3 6.5 %
[2017-02-22] MEDS ORDERED: VANCOMYCIN INJ 1,500 MG in SODIUM CHLORID 0.9% 500 ML INJ 500 ML IV ONE (18:00)
[2017-02-22] MEDS: EZETIMIBE 10 MG TAB PO SCH (20:42)
[2017-02-22] MEDS: TACROLIMUS 0.5 MG CAP PO SCH (20:49)
--- NOTE | 2017-02-22 21:10 | MB ---
cc: JUDY ALVAREZ DATE OF CONSULTATION 02/22/17 HISTORY OF PRESENT ILLNESS This is a pleasant 76-year-old male with history of kidney transplant approximately five years ago. He developed some pain over his transplanted kidney with lower abdominal pain over the last 24 hours. Once in the emergency room, he voided gross hematuria with clots. He has had a history of urinary tract infections in the past and does have a history of prostate cancer. Treatment for his prostate cancer was radiation therapy. He denies any prior history of gross hematuria but however he does have a long history of prior smoking. Presently, he does take Flomax one tablet p.o. b.i.d. for symptoms of outlet obstruction. He gets up two to three times at night and notes incomplete emptying at times. He denies any history of stones. PAST MEDICAL HISTORY 1. History of kidney transplant in 2011, 2. Coronary artery disease, 3. Aortic valve disease 4. Prostate cancer, 5. Squamous cell cancer, 6. Hypertension, 7. Renal failure secondary to hypertension. PAST SURGICAL HISTORY 1. Aortic valve replacement. 2. Cardiac stenting 3. Kidney transplant 4. AV fistula 5. Partial thyroidectomy. MEDICATIONS Please refer to the chart. ALLERGIES BLUE CRABS FAMILY HISTORY Denies any history of stones. No family history of prostate cancer was noted. SOCIAL HISTORY Denies alcohol at present, has a long history of smoking which he quit approximately 20 years ago. he smoked for approximately 40 years, one pack per day. REVIEW OF SYSTEMS Lower abdominal pain with gross hematuria, incomplete bladder emptying with nocturia. Denies gait disturbances. Does note easy bleeding in the past. Denies chest pain. Denies shortness of breath. Does note skin lesions. The remaining review of systems were reviewed and are negative per the HPI. PHYSICAL EXAMINATION VITAL SIGNS: Temperature is 99.2, heart rate 57, respiratory rate 18, blood pressure 154/70, pulse ox is 92%. GENERAL: He is an obese 76-year-old male in no acute distress. HEENT: Normocephalic, atraumatic. Pupils equal, round, react to light. Extraocular movements is intact. NECK: Supple. CARDIAC: Heart rates regular rate and rhythm. LUNGS: Clear bilaterally. ABDOMEN: Soft. Minimal tenderness over the area of the bladder and transplant site. A 14-Congolese Louise catheter which is currently draining bloody urine. EXTREMITIES: No cyanosis, clubbing or edema. : Normal phallus with testes descended. LABORATORY DATA White count of 7.0, hemoglobin 11.9, hematocrit 36.8, platelet count 121. Sodium 141, potassium 4.2, chloride 107, CO2 22, BUN of 12, creatinine 2.5, glucose of 109. Urinalysis shows large leuko esterase with numerous red and white cells with moderate clumps. Urine cultures is currently pending with blood cultures no growth at one day. IMAGING STUDIES No hydronephrosis of the transplanted kidney has been reported. Bladder is within normal limits given the degree of distension. ASSESSMENT 1. This is a 76-year-old male admitted with lower abdominal pain and findings of gross hematuria. A 22-Congolese three-way Louise catheter inserted at the bedside and the patient irrigated to clear with multiple clots being removed. Maintain Louise catheter and irrigate p.r.n. 2. History of prostate cancer with radiation therapy in the past. Bleeding could be secondary to radiation cystitis versus possible bladder cancer due to gross hematuria. Would recommend cystoscopy as an outpatient. 3. Incomplete bladder emptying with nocturia. Continue Flomax 0.4 mg p.o. b.i.d. 4. Continue IV fluids and encourage p.o. intake to help clear urine. 5. Void trial possibly prior to discharge. 6. Urinary tract infection. Continue antibiotics and check urine culture. Thank you for the consult and allowing me to participate in the care of this patient. Judy STARR /2:52 PM /8:55 PM
--- NOTE | 2017-02-22 23:15 | HHI.PR ---
Subjective Remarks Deferred entry - Patient seen at 6:50 pm patient states fever has subsided feels better denies abdominal pain Objective Vitals Vital Signs Date Time Temp Pulse Resp B/P (MAP) Pulse Ox O2 Delivery O2 Flow Rate FiO2 02/22/17 20:23 100.1 61 16 140/91 (107) 91 02/22/17 16:37 64 02/22/17 15:00 98.8 64 18 133/66 (88) 94 02/22/17 12:36 99.2 57 18 154/70 (98) 92 02/22/17 12:36 57 02/22/17 08:00 100.1 68 18 164/71 (102) 92 02/22/17 07:00 56 02/22/17 05:58 95 02/22/17 03:45 60 02/22/17 03:36 99.0 58 138/65 (89) 95 02/22/17 02:00 99.0 138/65 (89) 02/21/17 23:00 101.1 73 180/72 (108) 93 02/21/17 23:00 75 02/21/17 22:55 99.4 69 98/74 (82) 93 I/O 02/21/17 02/21/17 02/21/17 02/22/17 02/22/17 02/22/17 06:59 14:59 22:59 06:59 14:59 22:59 Intake Total 1100 ml 480 ml 720 ml 2100 ml Output Total 300 ml 250 ml 1150 ml 1100 ml Balance 800 ml 230 ml -430 ml 1000 ml Intake Oral 480 ml 720 ml 800 ml IV Total 1100 ml 1300 ml Output Urine Total 300 ml 250 ml 1150 ml 1100 ml # Voids 1 # Bowel Movements 0 1 0 Result Diagram: 02/22/17 0455 02/22/17 0455 Imaging Last Impressions Renal Ultrasound 02/21/17 0000 Signed Impressions: Service Date/Time: Tuesday, February 21, 2017 11:59 - CONCLUSION: There is no hydronephrosis.. I see no ancillary signs of rejection. Ole Godoy MD FACR Objective Remarks AAOx3, nad, sitting in chair eating dinner Clear lungs BL S1S2 RRR no MRG Clear lungs BL Abdomen soft, NT, ND Medications and IVs Current Medications Medications (Trade) Dose Ordered Sig/Larry Route Start Time Stop Time Status Last Admin (D50w (Vial) Inj) 50 ml UNSCH PRN IV 02/21/17 10:30 (Glucagon Inj) 1 mg UNSCH PRN OTHER 02/21/17 10:30 (NovoLOG SUPPLEMENTAL SCALE) 1 ACHS SLIDING SCALE SQ 02/21/17 11:00 02/22/17 20:52 Sodium Chloride 1,000 ml @ 100 mls/hr Q10H IV 02/21/17 10:19 02/22/17 16:15 (NS Flush) 2 ml UNSCH PRN IV FLUSH 02/21/17 10:30 (NS Flush) 2 ml BID IV FLUSH 02/21/17 21:00 02/22/17 20:40 (Tylenol) 650 mg Q4H PRN PO 02/21/17 10:30 02/22/17 20:41 (Zofran Inj) 4 mg Q6H PRN IVP 02/21/17 10:30 (Compazine Supp) 25 mg Q12H PRN RECTAL 02/21/17 10:30 (Ambien) 5 mg HS PRN PO 02/21/17 10:30 02/22/17 00:37 (Tylenol) 650 mg Q6H PRN PO 02/21/17 10:30 (Percocet 5-325 Mg) 1 tab Q6H PRN PO 02/21/17 10:30 02/22/17 16:01 (Percocet 10-325 Mg) 1 tab Q6H PRN PO 02/21/17 10:30 02/22/17 01:51 (Morphine Inj) 2 mg Q3H PRN IV 02/21/17 10:30 (Morphine Inj) 4 mg Q3H PRN IV 02/21/17 10:30 (Narcan Inj) 0.4 mg UNSCH PRN IV 02/21/17 10:30 (Lena-Colace) 1 tab BID PO 02/21/17 21:00 02/22/17 08:17 (Milk Of Magnesia Liq) 30 ml Q12H PRN PO 02/21/17 10:30 (Senokot) 17.2 mg Q12H PRN PO 02/21/17 10:30 (Dulcolax Supp) 10 mg DAILY PRN RECTAL 02/21/17 10:30 (Lactulose Liq) 30 ml DAILY PRN PO 02/21/17 10:30 (Norvasc) 10 mg DAILY PO 02/22/17 09:00 02/22/17 08:17 (Aspirin Chew) 81 mg DAILY CHEW 02/22/17 09:00 Future Hold (Rocaltrol) 0.25 mcg DAILY PO 02/22/17 09:00 02/22/17 08:17 (Vitamin D3) 1,000 units DAILY PO 02/22/17 09:00 02/22/17 08:24 (Zetia) 10 mg HS PO 02/21/17 21:00 02/22/17 20:42 (Apresoline) 50 mg BID PO 02/21/17 21:00 02/22/17 20:39 (Cellcept) 500 mg BID@0600,1800 PO 02/21/17 18:00 02/22/17 16:15 (Bystolic) 5 mg DAILY PO 02/22/17 09:00 02/22/17 08:17 (Protonix) 40 mg DAILY PO 02/22/17 09:00 02/22/17 08:17 (Deltasone) 5 mg DAILY PO 02/22/17 09:00 02/22/17 08:17 (Prograf) 0.5 mg HS PO 02/21/17 21:00 02/22/17 20:49 (Prograf) 1 mg DAILY PO 02/22/17 09:00 02/22/17 08:17 (Flomax) 0.4 mg BID PO 02/21/17 21:00 02/22/17 20:41 (NovoLIN 70/30 INJ) 20 units BID SQ 02/21/17 21:00 02/22/17 20:51 (Ocuvite) 1 tab DAILY PO 02/22/17 09:00 02/22/17 08:17 Piperacillin Sod/ Tazobactam Sod 50 ml @ 100 mls/hr Q8H IV 02/21/17 16:00 02/22/17 16:15 Pharmacy Profile Note 0 ml @ 0 mls/hr UNSCH OTHER 02/21/17 10:30 Urinary Catheter: Yes Assessment to: Continue Adkins insert reason: Obstruction/Retention A/P Problem List: (1) Sepsis ICD Code: A41.9 - Sepsis, unspecified organism Plan: Sepsis present on admission. Due to UTI Patient started on broad spectrum IV antibiotics. follow up blood cultures - Negative x1 DC Vancomycin (2) UTI (urinary tract infection) ICD Code: N39.0 - Urinary tract infection, site not specified Status: Acute Plan: Continue IV antibiotics as above. Urine culture grew gram negative rods. Dc IV Vancomycin - Continue Zosyn IV - fu ID and sensitivities. (3) Hyperlipidemia ICD Code: E78.5 - Hyperlipidemia, unspecified Plan: Continue Zetia (4) Kidney transplant status, cadaveric ICD Code: Z94.0 - Kidney transplant status Status: Acute Plan: Nephrology consulted and following. Fu recommendations. renal us did not show any evidence of hydronephrosis. Continue Tacrolimus and prednisone. (5) Hypertension ICD Code: I10 - Essential (primary) hypertension Status: Acute Plan: Continue antihypertensive medications. Currently on amlodpine, Bystolic and hydralazine. Bp elevated earlier today, now better. Losartan held due to TAMERA. (6) Diabetes ICD Code: E11.9 - Type 2 diabetes mellitus without complications Status: Acute Plan: Hemoglobin A1c 5.9. Diabetes is controlled. (7) Acute renal failure ICD Code: N17.9 - Acute kidney failure, unspecified Status: Acute Plan: TAMERA on ckd stage III. Baseline creatinine 1.6 to 1.7. Continue adkins catheter nephrology and urology consulted - fu recommendations. Patient will need cystoscopy as an outpatient. (8) GERD (gastroesophageal reflux disease) ICD Code: K21.9 - Gastro-esophageal reflux disease without esophagitis (9) BPH (benign prostatic hyperplasia) ICD Code: N40.0 - Benign prostatic hyperplasia without lower urinary tract symptoms Plan: Continue Flomax. Continue Adkins catheter. fu urology recommendations. Due to hematuria possible hemorrhagic cystitis after radiation therapy vs recurrent prostate cancer. (10) Immunosuppression ICD Code: D89.9 - Disorder involving the immune mechanism, unspecified Plan: No evidence of rejection on ultrasound. Continue immunosupressive therapy as above Problem Qualifiers (1) UTI (urinary tract infection): Qualified Codes: N30.01 - Acute cystitis with hematuria (2) Diabetes: Primo Whyte MD Feb 22, 2017 23:14
--- NOTE | 2017-02-22 23:57 | RADRPT ---
EXAM DATE/TIME: 02/22/2017 23:28 [facility] COMPARISON: No previous studies available for comparison. INDICATIONS : Shortness of breath MEDICAL HISTORY : Hypertension. Hypercholesterolemia. Diabetes mellitus type II. Skin cancer, Prostate cancer, May l failure SURGICAL HISTORY : Coronary artery stent. Aortic valve replacement, Left AV fistula ENCOUNTER: Initial ACUITY: 1 day PAIN SCORE: 7/10 LOCATION: Bilateral chest FINDINGS: Portable AP views of the chest demonstrate mildly enlarged cardiac silhouette in this patient post me mayr sternotomy. No effusion, consolidation, or pneumothorax is present. There is mild interstitial p rominence. The bones and soft tissues demonstrate no acute finding. CONCLUSION: 1. Interstitial prominence bilaterally of uncertain chronicity. In the acute setting this could repre sent mild interstitial edema. No other acute finding is identified. 2. Mildly enlarged cardiac silhouette. Donnell Lynch MD on February 22, 2017 at 23:53 Board Certified Radiologist. This report was verified electronically.
[2017-02-23] VITALS (15 sets, daily range): BP systolic 130–230; BP diastolic 62–98; PULSE 57–86; RESP 18–22; TEMP 99.1–102.5; O2SAT 84–97
[2017-02-23 00:41] LABS: HEMATOCRIT 36.5 % (39.0-51.0); REVIEW FLAG FINAL
[2017-02-23] MEDS: PIPERACIL-TAZO 3.375 GM PREMIX 50 ML IV SCH ×2 (01:46→08:13)
[2017-02-23] MEDS: ACETAMINOPHEN 325 MG TAB PO PRN ×2 (02:23→08:12)
[2017-02-23] MEDS ORDERED: FUROSEMIDE 40 MG/4 ML VIAL IV PUSH ONE (03:00)
[2017-02-23 05:34] LABS: AUTOMATED NEUTROPHIL # 5.5 TH/MM3 (1.8-7.7); BASOPHIL % 0.4 % (0.0-2.0); EOSINOPHIL % 0.1 % (0.0-4.0); HEMATOCRIT 33.9 % (39.0-51.0); HEMO FLAGS DIFF FINAL; LYMPH % 2.2 % (9.0-44.0); LYMPHOCYTE # 0.1 TH/MM3 (1.0-4.8); MEAN CELL VOLUME 91.3 FL (80.0-100.0); MEAN CORPUSCULAR HEMOGLOBIN 30.1 PG (27.0-34.0); MONO % 6.4 % (0.0-8.0); NEUT % 90.9 % (16.0-70.0); PLATELET COUNT 114 TH/MM3 (150-450); RED BLOOD COUNT 3.72 MIL/MM3 (4.50-5.90); RED CELL DISTRIBUTION WIDTH 15.8 % (11.6-17.2)
[2017-02-23 05:46] LABS: ANION GAP 11 MEQ/L (5-15); AST (GOT) 30 U/L (15-37); BICARBONATE 19.5 MEQ/L (21.0-32.0); BLOOD UREA NITROGEN 37 MG/DL (7-18); CHLORIDE 108 MEQ/L (98-107); GLOMERULAR FILTRATION RATE 29 ML/MIN (>89); MAGNESIUM 1.9 MG/DL (1.5-2.5); POTASSIUM 3.9 MEQ/L (3.5-5.1); SODIUM (NA) 138 MEQ/L (136-145)
[2017-02-23 06:04] LABS: ALKALINE PHOSPHATASE 34 U/L (45-117); ALT (GPT) 21 U/L (12-78); TOTAL BILIRUBIN ADULT 0.8 MG/DL (0.2-1.0)
[2017-02-23] MEDS: INSULIN ASPART SUPPLEMENTAL SCALE SQ SCH ×4 (06:16→20:41)
[2017-02-23] MEDS: MYCOPHENOLATE MOFETIL 500 MG TAB PO SCH ×2 (07:05→18:08)
[2017-02-23] MEDS: hydrALAZINE HCL 50 MG TAB PO SCH ×2 (08:12→20:30)
[2017-02-23] MEDS: CHOLECALCIFEROL (VIT D3) 1000 UNIT TAB PO SCH (08:12)
[2017-02-23] MEDS: predniSONE 5 MG TAB PO SCH (08:12)
[2017-02-23] MEDS: CALCITRIOL 0.25 MCG CAP PO SCH (08:12)
[2017-02-23] MEDS: TAMSULOSIN HCL 0.4 MG CAP PO SCH ×2 (08:12→20:30)
[2017-02-23] MEDS: PANTOPRAZOLE SOD 40 MG DELAYED RELEASE TAB PO SCH (08:12)
[2017-02-23] MEDS: DOCUSATE SODIUM 50 MG/SENNA 8.6 MG TAB PO SCH ×2 (08:12→20:30)
[2017-02-23] MEDS: MULTIVITAMIN-OPHTHALMIC 1 TAB PO SCH (08:13)
[2017-02-23] MEDS: NEBIVOLOL 5 MG TAB PO SCH (08:13)
[2017-02-23] MEDS: TACROLIMUS 1 MG CAP PO SCH (08:13)
[2017-02-23] MEDS: SODIUM CHLORIDE 0.9% FLUSH 10 ML FLUSH IV FLUSH SCH ×2 (08:13→20:31)
[2017-02-23] MEDS: INSULIN HUMAN NPH/R 70/30 1,000 UNITS/10 ML VIAL SQ SCH ×2 (09:50→20:44)
--- NOTE | 2017-02-23 12:06 | HHI.PR ---
Subjective Patient symptoms today Pt seen and examined. Urine now clear after irrigation yesterday at bedside. Objective Vital Signs Vital Signs Date Time Temp Pulse Resp B/P (MAP) Pulse Ox O2 Delivery O2 Flow Rate FiO2 02/23/17 09:25 100.4 142/63 (89) 02/23/17 08:00 101.6 76 20 196/98 (130) 92 02/23/17 04:15 100.6 65 20 178/73 (108) 92 Manual Cuff/Auscultation 02/23/17 03:11 93 02/23/17 02:44 93 Nasal Cannula 6.00 02/23/17 02:25 200/70 (113) 92 Automatic Cuff 02/23/17 02:20 102.5 86 22 230/97 (141) 84 02/23/17 01:55 78 02/23/17 00:01 57 02/23/17 00:00 101.5 78 22 195/85 (121) 97 02/22/17 23:55 99 02/22/17 20:23 100.1 61 16 140/91 (107) 91 02/22/17 16:37 64 02/22/17 15:00 98.8 64 18 133/66 (88) 94 02/22/17 12:36 99.2 57 18 154/70 (98) 92 02/22/17 12:36 57 Intake & Output 02/23/17 02/23/17 06:59 18:59 Intake Total 850 ml Output Total 1400 ml Balance -550 ml IV Total 850 ml Output Urine Total 1400 ml Result Diagram: 02/23/17 0354 02/23/17 0417 Objective Remarks Abd:soft,nt,nd Adkins: urine clear Medications and IVs Current Medications Medications (Trade) Dose Ordered Sig/Larry Route Start Time Stop Time Status Last Admin (D50w (Vial) Inj) 50 ml UNSCH PRN IV 02/21/17 10:30 (Glucagon Inj) 1 mg UNSCH PRN OTHER 02/21/17 10:30 (NovoLOG SUPPLEMENTAL SCALE) 1 ACHS SLIDING SCALE SQ 02/21/17 11:00 02/22/17 20:52 (NS Flush) 2 ml UNSCH PRN IV FLUSH 02/21/17 10:30 (NS Flush) 2 ml BID IV FLUSH 02/21/17 21:00 02/23/17 08:13 (Tylenol) 650 mg Q4H PRN PO 02/21/17 10:30 02/23/17 08:12 (Zofran Inj) 4 mg Q6H PRN IVP 02/21/17 10:30 (Compazine Supp) 25 mg Q12H PRN RECTAL 02/21/17 10:30 (Ambien) 5 mg HS PRN PO 02/21/17 10:30 02/22/17 00:37 (Tylenol) 650 mg Q6H PRN PO 02/21/17 10:30 (Percocet 5-325 Mg) 1 tab Q6H PRN PO 02/21/17 10:30 02/22/17 16:01 (Percocet 10-325 Mg) 1 tab Q6H PRN PO 02/21/17 10:30 02/22/17 01:51 (Morphine Inj) 2 mg Q3H PRN IV 02/21/17 10:30 (Morphine Inj) 4 mg Q3H PRN IV 02/21/17 10:30 (Narcan Inj) 0.4 mg UNSCH PRN IV 02/21/17 10:30 (Lena-Colace) 1 tab BID PO 02/21/17 21:00 02/23/17 08:12 (Milk Of Magnesia Liq) 30 ml Q12H PRN PO 02/21/17 10:30 (Senokot) 17.2 mg Q12H PRN PO 02/21/17 10:30 (Dulcolax Supp) 10 mg DAILY PRN RECTAL 02/21/17 10:30 (Lactulose Liq) 30 ml DAILY PRN PO 02/21/17 10:30 (Norvasc) 10 mg DAILY PO 02/22/17 09:00 02/23/17 08:12 (Aspirin Chew) 81 mg DAILY CHEW 02/22/17 09:00 Future Hold (Rocaltrol) 0.25 mcg DAILY PO 02/22/17 09:00 02/23/17 08:12 (Vitamin D3) 1,000 units DAILY PO 02/22/17 09:00 02/23/17 08:12 (Zetia) 10 mg HS PO 02/21/17 21:00 02/22/17 20:42 (Apresoline) 50 mg BID PO 02/21/17 21:00 02/23/17 08:12 (Cellcept) 500 mg BID@0600,1800 PO 02/21/17 18:00 02/23/17 07:05 (Bystolic) 5 mg DAILY PO 02/22/17 09:00 02/23/17 08:13 (Protonix) 40 mg DAILY PO 02/22/17 09:00 02/23/17 08:12 (Deltasone) 5 mg DAILY PO 02/22/17 09:00 02/23/17 08:12 (Prograf) 0.5 mg HS PO 02/21/17 21:00 02/22/17 20:49 (Prograf) 1 mg DAILY PO 02/22/17 09:00 02/23/17 08:13 (Flomax) 0.4 mg BID PO 02/21/17 21:00 02/23/17 08:12 (NovoLIN 70/30 INJ) 20 units BID SQ 02/21/17 21:00 02/23/17 09:50 (Ocuvite) 1 tab DAILY PO 02/22/17 09:00 02/23/17 08:13 Piperacillin Sod/ Tazobactam Sod 50 ml @ 100 mls/hr Q8H IV 02/21/17 16:00 02/23/17 08:13 Pharmacy Profile Note 0 ml @ 0 mls/hr UNSCH OTHER 02/21/17 10:30 Assessment and Plan Assessment and Plan 76 y.o male with h/o KTX with gross hematuria and E. coli UTI Continue IV ABX Maintain adkins and irrigate prn Possible void trial prior to discharge Cysto as outpt. Juan Cordero DO Feb 23, 2017 12:06
--- NOTE | 2017-02-23 13:45 | PQ ---
Physician Query Response Document PATIENT: HANDY EDWARD : 1940 ADMIT DATE: 02/21/2017 10:11 AM DISCH DATE: RESPONDING PROVIDER #: [email or web address] QUERY TEXT: Sepsis Query Based on your medical judgement, can you further define the character of sepsis 1. Sepsis (without organ dysfunction) 2. Severe Sepsis (with Organ Dysfunction or Lactic Acid >2) 3. Septic Shock: Hypotensive no response to fluids or Lactic Acid >4 4. A localized Infection only 5. Another condition - please specify 6. Unable to determine - please explain. The patient's Clinical Indicators include: Your progress note dated 02/22/17 states " Sepsis present on admission. Due to UTI Patient started on broad spectrum IV antibiotics. follow up blood cultures - Negative x1" Patient Temp-101.8, HR- 115, o2 Sat-90%, Bun -37, Creatinine-2.36 Query created by: Esme Anderson on 02/23/2017 9:39 AM RESPONSE TEXT: Severe sepsis Electronically signed by: Primo Marrero MD 02/23/2017 1:41 PM
--- NOTE | 2017-02-23 16:45 | HHI.PR ---
Subjective Remarks Patient still having fevers - Tmax 102.5 denies cp as per RN patient was SOB overnight and was given lasix patient states breathing much improved now sating 92% on room air. Objective Vitals Vital Signs Date Time Temp Pulse Resp B/P (MAP) Pulse Ox O2 Delivery O2 Flow Rate FiO2 02/23/17 12:00 100.3 63 20 130/65 (86) 92 02/23/17 09:25 100.4 142/63 (89) 02/23/17 08:00 101.6 76 20 196/98 (130) 92 02/23/17 04:15 100.6 65 20 178/73 (108) 92 Manual Cuff/Auscultation 02/23/17 03:11 93 02/23/17 02:44 93 Nasal Cannula 6.00 02/23/17 02:25 200/70 (113) 92 Automatic Cuff 02/23/17 02:20 102.5 86 22 230/97 (141) 84 02/23/17 01:55 78 02/23/17 00:01 57 02/23/17 00:00 101.5 78 22 195/85 (121) 97 02/22/17 23:55 99 02/22/17 20:23 100.1 61 16 140/91 (107) 91 02/22/17 16:37 64 I/O 02/22/17 02/22/17 02/22/17 02/23/17 02/23/17 02/23/17 06:59 14:59 22:59 06:59 14:59 22:59 Intake Total 720 ml 2100 ml 850 ml Output Total 1150 ml 1100 ml 1400 ml Balance -430 ml 1000 ml -550 ml Intake Oral 720 ml 800 ml IV Total 1300 ml 850 ml Output Urine Total 1150 ml 1100 ml 1400 ml # Bowel Movements 1 0 Result Diagram: 02/23/17 0354 02/23/17 0417 Imaging Last Impressions Chest X-Ray 02/22/17 0000 Signed Impressions: Service Date/Time: January 23:28 - CONCLUSION: 1. Interstitial prominence bilaterally of uncertain chronicity. In the acute setting this could represent mild interstitial edema. No other acute finding is identified. 2. Mildly enlarged cardiac silhouette. Donnell Lynch MD Renal Ultrasound 02/21/17 0000 Signed Impressions: Service Date/Time: Tuesday, February 21, 2017 11:59 - CONCLUSION: There is no hydronephrosis.. I see no ancillary signs of rejection. Ole Godoy MD FACR Objective Remarks AAOx3, nad, sitting in chair eating dinner Diminished breath sounds BL, no crackles, wheezing or rhonchi auscultated. S1S2 RRR no MRG Clear lungs BL Abdomen soft, NT, ND Medications and IVs Current Medications Medications (Trade) Dose Ordered Sig/Larry Route Start Time Stop Time Status Last Admin (D50w (Vial) Inj) 50 ml UNSCH PRN IV 02/21/17 10:30 (Glucagon Inj) 1 mg UNSCH PRN OTHER 02/21/17 10:30 (NovoLOG SUPPLEMENTAL SCALE) 1 ACHS SLIDING SCALE SQ 02/21/17 11:00 02/23/17 12:36 (NS Flush) 2 ml UNSCH PRN IV FLUSH 02/21/17 10:30 (NS Flush) 2 ml BID IV FLUSH 02/21/17 21:00 02/23/17 08:13 (Tylenol) 650 mg Q4H PRN PO 02/21/17 10:30 02/23/17 08:12 (Zofran Inj) 4 mg Q6H PRN IVP 02/21/17 10:30 (Compazine Supp) 25 mg Q12H PRN RECTAL 02/21/17 10:30 (Ambien) 5 mg HS PRN PO 02/21/17 10:30 02/22/17 00:37 (Tylenol) 650 mg Q6H PRN PO 02/21/17 10:30 (Percocet 5-325 Mg) 1 tab Q6H PRN PO 02/21/17 10:30 02/22/17 16:01 (Percocet 10-325 Mg) 1 tab Q6H PRN PO 02/21/17 10:30 02/22/17 01:51 (Morphine Inj) 2 mg Q3H PRN IV 02/21/17 10:30 (Morphine Inj) 4 mg Q3H PRN IV 02/21/17 10:30 (Narcan Inj) 0.4 mg UNSCH PRN IV 02/21/17 10:30 (Lena-Colace) 1 tab BID PO 02/21/17 21:00 02/23/17 08:12 (Milk Of Magnesia Liq) 30 ml Q12H PRN PO 02/21/17 10:30 (Senokot) 17.2 mg Q12H PRN PO 02/21/17 10:30 (Dulcolax Supp) 10 mg DAILY PRN RECTAL 02/21/17 10:30 (Lactulose Liq) 30 ml DAILY PRN PO 02/21/17 10:30 (Norvasc) 10 mg DAILY PO 02/22/17 09:00 02/23/17 08:12 (Aspirin Chew) 81 mg DAILY CHEW 02/22/17 09:00 Future Hold (Rocaltrol) 0.25 mcg DAILY PO 02/22/17 09:00 02/23/17 08:12 (Vitamin D3) 1,000 units DAILY PO 02/22/17 09:00 02/23/17 08:12 (Zetia) 10 mg HS PO 02/21/17 21:00 02/22/17 20:42 (Apresoline) 50 mg BID PO 02/21/17 21:00 02/23/17 08:12 (Cellcept) 500 mg BID@0600,1800 PO 02/21/17 18:00 02/23/17 07:05 (Bystolic) 5 mg DAILY PO 02/22/17 09:00 02/23/17 08:13 (Protonix) 40 mg DAILY PO 02/22/17 09:00 02/23/17 08:12 (Deltasone) 5 mg DAILY PO 02/22/17 09:00 02/23/17 08:12 (Prograf) 0.5 mg HS PO 02/21/17 21:00 02/22/17 20:49 (Prograf) 1 mg DAILY PO 02/22/17 09:00 02/23/17 08:13 (Flomax) 0.4 mg BID PO 02/21/17 21:00 02/23/17 08:12 (NovoLIN 70/30 INJ) 20 units BID SQ 02/21/17 21:00 02/23/17 09:50 (Ocuvite) 1 tab DAILY PO 02/22/17 09:00 02/23/17 08:13 Vancomycin HCl 1000 mg/Sodium Chloride 250 ml @ 250 mls/hr ONCE ONCE IV 02/23/17 18:00 02/23/17 18:59 Ceftriaxone Sodium 2000 mg/ Sodium Chloride 100 ml @ 200 mls/hr Q24H IV 02/23/17 17:00 Urinary Catheter: Yes Assessment to: Continue Adkins insert reason: Measure Accurate Output Vascular Central Line Catheter: No A/P Problem List: (1) Sepsis ICD Code: A41.9 - Sepsis, unspecified organism Plan: Severe Sepsis present on admission. Due to UTI Patient started on broad spectrum IV antibiotics. 02/23 Urine culture is growing E Coli - Dc IV zosyn and start on IV Rocephin. Blood cultures negative x2. Continue to monitor blood cultures and vital signs. Patient still having fevers. DC IV fluids given patient having shortness of breath earlier. (2) UTI (urinary tract infection) ICD Code: N39.0 - Urinary tract infection, site not specified Status: Acute Plan: Continue IV antibiotics as above. Urine culture is growing Escherichia coli. DC IV Zosyn and start on IV Rocephin. (3) Hyperlipidemia ICD Code: E78.5 - Hyperlipidemia, unspecified Plan: Continue Zetia (4) Kidney transplant status, cadaveric ICD Code: Z94.0 - Kidney transplant status Status: Acute Plan: Nephrology consulted and following. Fu recommendations. renal us did not show any evidence of hydronephrosis. Continue Tacrolimus and prednisone. (5) Hypertension ICD Code: I10 - Essential (primary) hypertension Status: Acute Plan: Continue antihypertensive medications. Currently on amlodpine, Bystolic and hydralazine. Bp elevated earlier today, now better. Losartan held due to TAMERA. (6) Diabetes ICD Code: E11.9 - Type 2 diabetes mellitus without complications Status: Acute Plan: Hemoglobin A1c 5.9. Diabetes is controlled. (7) Acute renal failure ICD Code: N17.9 - Acute kidney failure, unspecified Status: Acute Plan: TAMERA on ckd stage III. Baseline creatinine 1.6 to 1.7. Continue adkins catheter nephrology and urology consulted - fu recommendations. Patient will need cystoscopy as an outpatient. 02/23 Creatinine trending down from 2.5 to 2.24 (8) GERD (gastroesophageal reflux disease) ICD Code: K21.9 - Gastro-esophageal reflux disease without esophagitis Status: Chronic Plan: Continue PPI. Stable. (9) BPH (benign prostatic hyperplasia) ICD Code: N40.0 - Benign prostatic hyperplasia without lower urinary tract symptoms Plan: Continue Flomax. Continue Adkins catheter. fu urology recommendations. Due to hematuria possible hemorrhagic cystitis after radiation therapy vs recurrent prostate cancer. Will need cystoscopy as an outpatient. (10) Immunosuppression ICD Code: D89.9 - Disorder involving the immune mechanism, unspecified Plan: No evidence of rejection on ultrasound. Continue immunosupressive therapy as per renal recommendations. (11) SOB (shortness of breath) ICD Code: R06.02 - Shortness of breath Status: Resolved Plan: Patient with shortness of breath and hypoxemia overnight, responded well to IV Lasix administered by the overnight team. Suspect congestive heart failure. Chest x-ray obtained showed interstitial prominence bilaterally of uncertain chronicity. In the acute setting this could represent mild interstitial edema. There is a mildly enlarged cardiac silhouette. Will check 2-D echocardiogram and continue with Lasix 40 mg by mouth daily. Assessment and Plan GI prophylaxis: PPI. DVT prophylaxis: SCDs, no chemoprophylaxis secondary to hematuria. Discharge Planning Continue to monitor in the medical floor. Discharge pending resolution of fevers and echocardiogram. Problem Qualifiers (1) Sepsis: Qualified Codes: A41.9 - Sepsis, unspecified organism (2) UTI (urinary tract infection): Qualified Codes: N30.01 - Acute cystitis with hematuria (3) Hyperlipidemia: Qualified Codes: E78.5 - Hyperlipidemia, unspecified (4) Diabetes: (5) GERD (gastroesophageal reflux disease): Qualified Codes: K21.9 - Gastro-esophageal reflux disease without esophagitis Primo Whyte MD Feb 23, 2017 16:45
[2017-02-23] MEDS: cefTRIAXone INJ 2,000 MG in SODIUM CHLORIDE 0.9% INJ 100 ML IV SCH (17:07)
[2017-02-23] MEDS ORDERED: VANCOMYCIN 1,000 MG/NS 250 ML IV ONE ×2 (18:00)
--- NOTE | 2017-02-23 18:04 | HHI.NPPN ---
Subjective History of Present Illness 76 year old Kidney transplant, UTI with hematuria Review of Systems General Constitutional: Fatigue Objective Data Data Vital Signs Date Time Temp Pulse Resp B/P (MAP) Pulse Ox O2 Delivery O2 Flow Rate FiO2 02/23/17 16:00 99.1 73 18 136/62 (86) 92 02/23/17 12:00 100.3 63 20 130/65 (86) 92 02/23/17 09:25 100.4 142/63 (89) 02/23/17 08:00 101.6 76 20 196/98 (130) 92 02/23/17 04:15 100.6 65 20 178/73 (108) 92 Manual Cuff/Auscultation 02/23/17 03:11 93 02/23/17 02:44 93 Nasal Cannula 6.00 02/23/17 02:25 200/70 (113) 92 Automatic Cuff 02/23/17 02:20 102.5 86 22 230/97 (141) 84 02/23/17 01:55 78 02/23/17 00:01 57 02/23/17 00:00 101.5 78 22 195/85 (121) 97 02/22/17 23:55 99 02/22/17 20:23 100.1 61 16 140/91 (107) 91 -: 02/23/17 0354 02/23/17 0417 Physical Exam General Appearance: Well Developed Neck Neck Exam: Neck Supple Pulmonary Resp Exam: Decreased Bases Cardiology CV Exam: Regular, Normal Sinus Rhythm Gastrointestinal/Abdomen GI Exam: Soft, Non-Tender, Bowel Sounds Present Extremeties Extremities Exam: Trace Edema Assessment/Plan Problem List: (1) Kidney transplant status, cadaveric ICD Codes: Z94.0 - Kidney transplant status Status: Acute Plan: hematuria s/p Louise now bladder irrigated and it is better , Urology consult appreciated urine clear continue with antibiotic, cr better at 2.2 UTI Ecoli on Ceftriaxone hematuria subsided Follow BMP Tacro level (2) Immunosuppression ICD Codes: D89.9 - Disorder involving the immune mechanism, unspecified Plan: Continue his prednisone, Prograf and CellCept (3) UTI (urinary tract infection) ICD Codes: N39.0 - Urinary tract infection, site not specified Status: Acute Plan: Vancomycin and Zosyn as given (4) Diabetes ICD Codes: E11.9 - Type 2 diabetes mellitus without complications Status: Acute Plan: Continue to monitor Problem Qualifiers (1) UTI (urinary tract infection): Qualified Codes: N30.01 - Acute cystitis with hematuria (2) Diabetes: Tila Benton MD Feb 23, 2017 18:04
[2017-02-23] MEDS: EZETIMIBE 10 MG TAB PO SCH (20:30)
[2017-02-23] MEDS: TACROLIMUS 0.5 MG CAP PO SCH (20:30)
[2017-02-24] VITALS (11 sets, daily range): BP systolic 135–178; BP diastolic 67–79; PULSE 62–76; RESP 17–20; TEMP 97.9–100; O2SAT 92–95
[2017-02-24] MEDS: ACETAMINOPHEN 325 MG TAB PO PRN (03:58)
[2017-02-24 06:54] LABS: AUTOMATED NEUTROPHIL # 4.9 TH/MM3 (1.8-7.7); BASOPHIL % 0.2 % (0.0-2.0); EOSINOPHIL % 0.3 % (0.0-4.0); HEMATOCRIT 33.5 % (39.0-51.0); HEMO FLAGS DIFF FINAL; LYMPH % 5.4 % (9.0-44.0); LYMPHOCYTE # 0.3 TH/MM3 (1.0-4.8); MEAN CELL VOLUME 91.3 FL (80.0-100.0); MEAN CORPUSCULAR HEMOGLOBIN 29.9 PG (27.0-34.0); MEAN CORPUSCULAR HGB CONC 32.8 % (32.0-36.0); MONO % 10.8 % (0.0-8.0); NEUT % 83.3 % (16.0-70.0); PLATELET COUNT 113 TH/MM3 (150-450); RED BLOOD COUNT 3.68 MIL/MM3 (4.50-5.90); RED CELL DISTRIBUTION WIDTH 15.7 % (11.6-17.2); WHITE BLOOD COUNT 5.9 TH/MM3 (4.0-11.0)
[2017-02-24] MEDS: MYCOPHENOLATE MOFETIL 500 MG TAB PO SCH ×2 (06:57→16:47)
[2017-02-24] MEDS: INSULIN ASPART SUPPLEMENTAL SCALE SQ SCH ×4 (06:59→22:07)
[2017-02-24 07:21] LABS: ANION GAP 8 MEQ/L (5-15); AST (GOT) 22 U/L (15-37); BICARBONATE 22.7 MEQ/L (21.0-32.0); BLOOD UREA NITROGEN 37 MG/DL (7-18); CHLORIDE 106 MEQ/L (98-107); GLOMERULAR FILTRATION RATE 31 ML/MIN (>89); MAGNESIUM 1.9 MG/DL (1.5-2.5); POTASSIUM 3.9 MEQ/L (3.5-5.1); SODIUM (NA) 137 MEQ/L (136-145)
[2017-02-24 07:23] LABS: ALT (GPT) 20 U/L (12-78)
[2017-02-24 07:25] LABS: ALKALINE PHOSPHATASE 33 U/L (45-117); TOTAL BILIRUBIN ADULT 0.7 MG/DL (0.2-1.0)
[2017-02-24] MEDS: DOCUSATE SODIUM 50 MG/SENNA 8.6 MG TAB PO SCH ×2 (09:00→21:00)
[2017-02-24] MEDS: TACROLIMUS 1 MG CAP PO SCH (09:00)
--- NOTE | 2017-02-24 10:22 | HHI.PR ---
Subjective Patient symptoms today Pt feels well. Urine clear. Had to irrigate adkins early AM for a few old clots to be evacuated. No clots this AM. Objective Vital Signs Vital Signs Date Time Temp Pulse Resp B/P (MAP) Pulse Ox O2 Delivery O2 Flow Rate FiO2 02/24/17 08:00 99.3 68 18 139/74 (95) 94 02/24/17 06:03 100.0 76 20 178/79 (112) 94 02/24/17 00:00 98.8 63 20 167/72 (103) 95 02/23/17 20:45 92 Nasal Cannula 6.00 02/23/17 20:16 94 Nasal Cannula 3.00 Humidified 02/23/17 20:00 99.9 65 20 161/70 (100) 94 02/23/17 19:45 60 02/23/17 16:00 99.1 73 18 136/62 (86) 92 02/23/17 12:00 100.3 63 20 130/65 (86) 92 Intake & Output 02/24/17 02/24/17 07:00 19:00 Intake Total 840 ml Output Total 1450 ml Balance -610 ml Intake Oral 490 ml IV Total 350 ml Output Urine Total 1450 ml Result Diagram: 02/24/17 04202/24/17 042 Objective Remarks Abd:soft,nt,nd Adkins: urine clear 02/24 Abd:soft,nt,nd Adkins: urine clear Medications and IVs Current Medications Medications (Trade) Dose Ordered Sig/Larry Route Start Time Stop Time Status Last Admin (D50w (Vial) Inj) 50 ml UNSCH PRN IV 02/21/17 10:30 (Glucagon Inj) 1 mg UNSCH PRN OTHER 02/21/17 10:30 (NovoLOG SUPPLEMENTAL SCALE) 1 ACHS SLIDING SCALE SQ 02/21/17 11:00 02/23/17 17:11 (NS Flush) 2 ml UNSCH PRN IV FLUSH 02/21/17 10:30 (NS Flush) 2 ml BID IV FLUSH 02/21/17 21:00 02/23/17 20:31 (Tylenol) 650 mg Q4H PRN PO 02/21/17 10:30 02/24/17 03:58 (Zofran Inj) 4 mg Q6H PRN IVP 02/21/17 10:30 (Compazine Supp) 25 mg Q12H PRN RECTAL 02/21/17 10:30 (Ambien) 5 mg HS PRN PO 02/21/17 10:30 02/22/17 00:37 (Tylenol) 650 mg Q6H PRN PO 02/21/17 10:30 (Percocet 5-325 Mg) 1 tab Q6H PRN PO 02/21/17 10:30 02/22/17 16:01 (Percocet 10-325 Mg) 1 tab Q6H PRN PO 02/21/17 10:30 02/22/17 01:51 (Morphine Inj) 2 mg Q3H PRN IV 02/21/17 10:30 (Morphine Inj) 4 mg Q3H PRN IV 02/21/17 10:30 (Narcan Inj) 0.4 mg UNSCH PRN IV 02/21/17 10:30 (Lena-Colace) 1 tab BID PO 02/21/17 21:00 02/23/17 20:30 (Milk Of Magnesia Liq) 30 ml Q12H PRN PO 02/21/17 10:30 (Senokot) 17.2 mg Q12H PRN PO 02/21/17 10:30 (Dulcolax Supp) 10 mg DAILY PRN RECTAL 02/21/17 10:30 (Lactulose Liq) 30 ml DAILY PRN PO 02/21/17 10:30 (Norvasc) 10 mg DAILY PO 02/22/17 09:00 02/23/17 08:12 (Aspirin Chew) 81 mg DAILY CHEW 02/22/17 09:00 Future Hold (Rocaltrol) 0.25 mcg DAILY PO 02/22/17 09:00 02/23/17 08:12 (Vitamin D3) 1,000 units DAILY PO 02/22/17 09:00 02/23/17 08:12 (Zetia) 10 mg HS PO 02/21/17 21:00 02/23/17 20:30 (Apresoline) 50 mg BID PO 02/21/17 21:00 02/23/17 20:30 (Cellcept) 500 mg BID@0600,1800 PO 02/21/17 18:00 02/24/17 06:57 (Bystolic) 5 mg DAILY PO 02/22/17 09:00 02/23/17 08:13 (Protonix) 40 mg DAILY PO 02/22/17 09:00 02/23/17 08:12 (Deltasone) 5 mg DAILY PO 02/22/17 09:00 02/23/17 08:12 (Prograf) 0.5 mg HS PO 02/21/17 21:00 02/23/17 20:30 (Prograf) 1 mg DAILY PO 02/22/17 09:00 02/23/17 08:13 (Flomax) 0.4 mg BID PO 02/21/17 21:00 02/23/17 20:30 (NovoLIN 70/30 INJ) 20 units BID SQ 02/21/17 21:00 02/23/17 20:44 (Ocuvite) 1 tab DAILY PO 02/22/17 09:00 02/23/17 08:13 Ceftriaxone Sodium 2000 mg/ Sodium Chloride 100 ml @ 200 mls/hr Q24H IV 02/23/17 17:00 02/23/17 17:07 (Lasix) 40 mg DAILY PO 02/24/17 09:00 Assessment and Plan Assessment and Plan 76 y.o male with h/o KTX with gross hematuria and E. coli UTI Continue IV ABX Maintain adkins and irrigate prn Possible void trial prior to discharge Cysto as outpt. 02/24 76 y.o male with h/o KTX with gross hematuria and E. coli UTI Continue IV ABX Maintain adkins and irrigate prn Creatinine slowly improving and down to 2.1 Juan Cordero DO Feb 24, 2017 10:22
[2017-02-24] MEDS: PANTOPRAZOLE SOD 40 MG DELAYED RELEASE TAB PO SCH (10:25)
[2017-02-24] MEDS: FUROSEMIDE 40 MG TAB PO SCH (10:26)
[2017-02-24] MEDS: hydrALAZINE HCL 50 MG TAB PO SCH ×2 (10:26→21:56)
[2017-02-24] MEDS: NEBIVOLOL 5 MG TAB PO SCH (10:26)
[2017-02-24] MEDS: MULTIVITAMIN-OPHTHALMIC 1 TAB PO SCH (10:26)
[2017-02-24] MEDS: predniSONE 5 MG TAB PO SCH (10:26)
[2017-02-24] MEDS: TAMSULOSIN HCL 0.4 MG CAP PO SCH ×2 (10:27→21:56)
[2017-02-24] MEDS: CHOLECALCIFEROL (VIT D3) 1000 UNIT TAB PO SCH (10:29)
[2017-02-24] MEDS: CALCITRIOL 0.25 MCG CAP PO SCH (10:29)
--- NOTE | 2017-02-24 10:40 | HHI.NPPN ---
Subjective History of Present Illness 76 year old Kidney transplant, UTI with hematuria Additional Remarks Patient is alert, no SOB, feeling better. Review of Systems General Constitutional: Fatigue Objective Data Data Vital Signs Date Time Temp Pulse Resp B/P (MAP) Pulse Ox O2 Delivery O2 Flow Rate FiO2 02/24/17 08:00 99.3 68 18 139/74 (95) 94 02/24/17 06:03 100.0 76 20 178/79 (112) 94 02/24/17 00:00 98.8 63 20 167/72 (103) 95 02/23/17 20:45 92 Nasal Cannula 6.00 02/23/17 20:16 94 Nasal Cannula 3.00 Humidified 02/23/17 20:00 99.9 65 20 161/70 (100) 94 02/23/17 19:45 60 02/23/17 16:00 99.1 73 18 136/62 (86) 92 02/23/17 12:00 100.3 63 20 130/65 (86) 92 -: 02/24/17 0420 02/24/17 0420 Physical Exam General Appearance: No Acute Distress, Comfortable Neck Neck Exam: Neck Supple Pulmonary Resp Exam: Decreased Bases Cardiology CV Exam: Regular, Normal Sinus Rhythm Gastrointestinal/Abdomen GI Exam: Soft, Non-Tender, Bowel Sounds Present Extremeties Extremities Exam: Trace Edema Neurologic Neuro Exam: Alert, Awake Psychiatric Psych Exam: Appropriate Responses Assessment/Plan Problem List: (1) Kidney transplant status, cadaveric ICD Codes: Z94.0 - Kidney transplant status Status: Acute Plan: hematuria s/p Louise now bladder irrigated and it is better , Urology consult appreciated urine clear continue with antibiotic, cr better at 2.2 UTI Ecoli on Ceftriaxone hematuria subsided Tacro level is pending. creatinine is 2.1, better. (2) Immunosuppression ICD Codes: D89.9 - Disorder involving the immune mechanism, unspecified Plan: Continue his prednisone, Prograf and CellCept (3) UTI (urinary tract infection) ICD Codes: N39.0 - Urinary tract infection, site not specified Status: Acute Plan: Vancomycin and Zosyn as given (4) Diabetes ICD Codes: E11.9 - Type 2 diabetes mellitus without complications Status: Acute Plan: Continue to monitor Problem Qualifiers (1) UTI (urinary tract infection): Qualified Codes: N30.01 - Acute cystitis with hematuria (2) Diabetes: Jumani,Bill Q. MD Feb 24, 2017 10:40
[2017-02-24] MEDS: INSULIN HUMAN NPH/R 70/30 1,000 UNITS/10 ML VIAL SQ SCH ×2 (10:41→22:11)
[2017-02-24] MEDS: SODIUM CHLORIDE 0.9% FLUSH 10 ML FLUSH IV FLUSH SCH ×2 (10:45→22:07)
[2017-02-24] MEDS: cefTRIAXone INJ 2,000 MG in SODIUM CHLORIDE 0.9% INJ 100 ML IV SCH (16:54)
--- NOTE | 2017-02-24 18:03 | HHI.PR ---
Subjective Remarks patient had a low grade temp this am - tmax 100.0 Denies rash or diarrhea denies any clots, urine is clear denies cp/sob Objective Vitals Vital Signs Date Time Temp Pulse Resp B/P (MAP) Pulse Ox O2 Delivery O2 Flow Rate FiO2 02/24/17 17:45 92 Nasal Cannula 3.00 02/24/17 16:00 97.9 62 18 150/67 (94) 92 02/24/17 14:30 93 Nasal Cannula 3.00 02/24/17 12:00 98.8 65 17 135/68 (90) 95 02/24/17 10:57 67 02/24/17 10:51 67 02/24/17 08:00 99.3 68 18 139/74 (95) 94 02/24/17 06:03 100.0 76 20 178/79 (112) 94 02/24/17 00:00 98.8 63 20 167/72 (103) 95 02/23/17 20:45 92 Nasal Cannula 6.00 02/23/17 20:16 94 Nasal Cannula 3.00 Humidified 02/23/17 20:00 99.9 65 20 161/70 (100) 94 02/23/17 19:45 60 I/O 02/23/17 02/23/17 02/23/17 02/24/17 02/24/17 02/24/17 07:00 15:00 23:00 07:00 15:00 23:00 Intake Total 50 ml 1210 ml 250 ml Output Total 800 ml 2150 ml 850 ml Balance -750 ml -940 ml -600 ml Intake Oral 860 ml 250 ml IV Total 50 ml 350 ml Output Urine Total 800 ml 2150 ml 850 ml # Bowel Movements 1 Result Diagram: 02/24/17 0420 02/24/17 0420 Imaging Last Impressions Chest X-Ray 02/22/17 0000 Signed Impressions: Service Date/Time: January 23:28 - CONCLUSION: 1. Interstitial prominence bilaterally of uncertain chronicity. In the acute setting this could represent mild interstitial edema. No other acute finding is identified. 2. Mildly enlarged cardiac silhouette. Donnell Lynch MD Renal Ultrasound 02/21/17 0000 Signed Impressions: Service Date/Time: Tuesday, February 21, 2017 11:59 - CONCLUSION: There is no hydronephrosis.. I see no ancillary signs of rejection. Ole Godoy MD FACR Objective Remarks AAOx3, nad, sitting in chair eating dinner Diminished breath sounds BL, no crackles, wheezing or rhonchi auscultated. S1S2 RRR no MRG Clear lungs BL Abdomen soft, NT, ND Medications and IVs Current Medications Medications (Trade) Dose Ordered Sig/Larry Route Start Time Stop Time Status Last Admin (D50w (Vial) Inj) 50 ml UNSCH PRN IV 02/21/17 10:30 (Glucagon Inj) 1 mg UNSCH PRN OTHER 02/21/17 10:30 (NovoLOG SUPPLEMENTAL SCALE) 1 ACHS SLIDING SCALE SQ 02/21/17 11:00 02/24/17 16:00 (NS Flush) 2 ml UNSCH PRN IV FLUSH 02/21/17 10:30 (NS Flush) 2 ml BID IV FLUSH 02/21/17 21:00 02/24/17 10:45 (Tylenol) 650 mg Q4H PRN PO 02/21/17 10:30 02/24/17 03:58 (Zofran Inj) 4 mg Q6H PRN IVP 02/21/17 10:30 (Compazine Supp) 25 mg Q12H PRN RECTAL 02/21/17 10:30 (Ambien) 5 mg HS PRN PO 02/21/17 10:30 02/22/17 00:37 (Tylenol) 650 mg Q6H PRN PO 02/21/17 10:30 (Percocet 5-325 Mg) 1 tab Q6H PRN PO 02/21/17 10:30 02/22/17 16:01 (Percocet 10-325 Mg) 1 tab Q6H PRN PO 02/21/17 10:30 02/22/17 01:51 (Morphine Inj) 2 mg Q3H PRN IV 02/21/17 10:30 (Morphine Inj) 4 mg Q3H PRN IV 02/21/17 10:30 (Narcan Inj) 0.4 mg UNSCH PRN IV 02/21/17 10:30 (Lena-Colace) 1 tab BID PO 02/21/17 21:00 02/23/17 20:30 (Milk Of Magnesia Liq) 30 ml Q12H PRN PO 02/21/17 10:30 (Senokot) 17.2 mg Q12H PRN PO 02/21/17 10:30 (Dulcolax Supp) 10 mg DAILY PRN RECTAL 02/21/17 10:30 (Lactulose Liq) 30 ml DAILY PRN PO 02/21/17 10:30 (Norvasc) 10 mg DAILY PO 02/22/17 09:00 02/24/17 10:27 (Aspirin Chew) 81 mg DAILY CHEW 02/22/17 09:00 Future Hold (Rocaltrol) 0.25 mcg DAILY PO 02/22/17 09:00 02/24/17 10:29 (Vitamin D3) 1,000 units DAILY PO 02/22/17 09:00 02/24/17 10:29 (Zetia) 10 mg HS PO 02/21/17 21:00 02/23/17 20:30 (Apresoline) 50 mg BID PO 02/21/17 21:00 02/24/17 10:26 (Cellcept) 500 mg BID@0600,1800 PO 02/21/17 18:00 02/24/17 16:47 (Bystolic) 5 mg DAILY PO 02/22/17 09:00 02/24/17 10:26 (Protonix) 40 mg DAILY PO 02/22/17 09:00 02/24/17 10:25 (Deltasone) 5 mg DAILY PO 02/22/17 09:00 02/24/17 10:26 (Prograf) 0.5 mg HS PO 02/21/17 21:00 02/23/17 20:30 (Prograf) 1 mg DAILY PO 02/22/17 09:00 02/24/17 09:00 (Flomax) 0.4 mg BID PO 02/21/17 21:00 02/24/17 10:27 (NovoLIN 70/30 INJ) 20 units BID SQ 02/21/17 21:00 02/24/17 10:41 (Ocuvite) 1 tab DAILY PO 02/22/17 09:00 02/24/17 10:26 Ceftriaxone Sodium 2000 mg/ Sodium Chloride 100 ml @ 200 mls/hr Q24H IV 02/23/17 17:00 02/24/17 16:54 (Lasix) 40 mg DAILY PO 02/24/17 09:00 02/24/17 10:26 Urinary Catheter: Yes Assessment to: Continue Adkins insert reason: Measure Accurate Output Vascular Central Line Catheter: No A/P Problem List: (1) Sepsis ICD Code: A41.9 - Sepsis, unspecified organism (2) UTI (urinary tract infection) ICD Code: N39.0 - Urinary tract infection, site not specified Status: Acute (3) Hyperlipidemia ICD Code: E78.5 - Hyperlipidemia, unspecified (4) Kidney transplant status, cadaveric ICD Code: Z94.0 - Kidney transplant status Status: Acute (5) Hypertension ICD Code: I10 - Essential (primary) hypertension Status: Acute (6) Diabetes ICD Code: E11.9 - Type 2 diabetes mellitus without complications Status: Acute (7) Acute renal failure ICD Code: N17.9 - Acute kidney failure, unspecified Status: Acute (8) GERD (gastroesophageal reflux disease) ICD Code: K21.9 - Gastro-esophageal reflux disease without esophagitis Status: Chronic (9) BPH (benign prostatic hyperplasia) ICD Code: N40.0 - Benign prostatic hyperplasia without lower urinary tract symptoms (10) Immunosuppression ICD Code: D89.9 - Disorder involving the immune mechanism, unspecified (11) SOB (shortness of breath) ICD Code: R06.02 - Shortness of breath Status: Resolved Assessment and Plan (1) Sepsis Plan: Severe Sepsis present on admission. Due to UTI Patient started on broad spectrum IV antibiotics. 02/23 Urine culture is growing E Coli - Dc IV zosyn and start on IV Rocephin. Blood cultures negative x2. Continue to monitor blood cultures and vital signs. Patient still having fevers. DC IV fluids given patient having shortness of breath earlier. 02/24 Continue IV Rocephin. Fever is trending down and only had low grade temp this am. Blood cultures negative to date. (2) UTI (urinary tract infection) Plan: E coli uti. continue IV rocephin. (3) Hyperlipidemia Plan: Continue Zetia. (4) Kidney transplant status, cadaveric Plan: Nephrology consulted and following. Fu recommendations. renal us did not show any evidence of hydronephrosis or rejection. Continue Tacrolimus and prednisone. Tacrolimus level is 5.0. (5) Hypertension Plan: Continue antihypertensive medications. Currently on amlodpine, Bystolic and hydralazine. Bp elevated earlier today, now better. Losartan held due to TAMERA. (6) Diabetes Plan: Hemoglobin A1c 5.9. Diabetes is controlled. (7) Acute renal failure Plan: TAMERA on ckd stage III. Baseline creatinine 1.6 to 1.7. Continue adkins catheter nephrology and urology consulted - fu recommendations. Patient will need cystoscopy as an outpatient. 02/23 Creatinine trending down from 2.5 to 2.24 02/24 Creatinine is improving with excellent urine output. (8) GERD (gastroesophageal reflux disease) Plan: Continue PPI. Stable. (9) BPH (benign prostatic hyperplasia) Plan: Continue Flomax. Continue Adkins catheter. fu urology recommendations. Due to hematuria possible hemorrhagic cystitis after radiation therapy vs recurrent prostate cancer. Will need cystoscopy as an outpatient. (10) Immunosuppression Plan: No evidence of rejection on ultrasound. Continue immunosupressive therapy as per renal recommendations. (11) SOB (shortness of breath) Plan: Patient with shortness of breath and hypoxemia overnight, responded well to IV Lasix administered by the overnight team. Suspect congestive heart failure. Chest x-ray obtained showed interstitial prominence bilaterally of uncertain chronicity. In the acute setting this could represent mild interstitial edema. There is a mildly enlarged cardiac silhouette. Will check 2-D echocardiogram and continue with Lasix 40 mg by mouth daily. 02/24 Denies sob. Repeat cxr in am. Echo pending. GI prophylaxis: PPI. DVT prophylaxis: SCDs, no chemoprophylaxis secondary to hematuria. Discharge Planning Continue to monitor in the medical floor. Discharge pending resolution of fevers and echocardiogram. Problem Qualifiers (1) Sepsis: Qualified Codes: A41.9 - Sepsis, unspecified organism (2) UTI (urinary tract infection): Qualified Codes: N30.01 - Acute cystitis with hematuria (3) Hyperlipidemia: Qualified Codes: E78.5 - Hyperlipidemia, unspecified (4) Diabetes: (5) GERD (gastroesophageal reflux disease): Qualified Codes: K21.9 - Gastro-esophageal reflux disease without esophagitis Primo Whyte MD Feb 24, 2017 18:03
[2017-02-24] MEDS: TACROLIMUS 0.5 MG CAP PO SCH (21:56)
[2017-02-24] MEDS: EZETIMIBE 10 MG TAB PO SCH (22:07)
[2017-02-25] VITALS (9 sets, daily range): BP systolic 130–159; BP diastolic 61–75; PULSE 56–78; RESP 17–22; TEMP 97.4–99.4; O2SAT 91–98
[2017-02-25] MEDS: MYCOPHENOLATE MOFETIL 500 MG TAB PO SCH ×2 (05:59→17:55)
[2017-02-25] MEDS: INSULIN ASPART SUPPLEMENTAL SCALE SQ SCH ×4 (06:02→20:30)
[2017-02-25] MEDS: PANTOPRAZOLE SOD 40 MG DELAYED RELEASE TAB PO SCH (08:38)
[2017-02-25] MEDS: CALCITRIOL 0.25 MCG CAP PO SCH (08:38)
[2017-02-25] MEDS: DOCUSATE SODIUM 50 MG/SENNA 8.6 MG TAB PO SCH ×2 (08:38→20:27)
[2017-02-25] MEDS: hydrALAZINE HCL 50 MG TAB PO SCH ×2 (08:38→20:25)
[2017-02-25] MEDS: NEBIVOLOL 5 MG TAB PO SCH (08:38)
[2017-02-25] MEDS: MULTIVITAMIN-OPHTHALMIC 1 TAB PO SCH (08:38)
[2017-02-25] MEDS: CHOLECALCIFEROL (VIT D3) 1000 UNIT TAB PO SCH (08:39)
[2017-02-25] MEDS: FUROSEMIDE 40 MG TAB PO SCH (08:39)
[2017-02-25] MEDS: TAMSULOSIN HCL 0.4 MG CAP PO SCH ×2 (08:39→20:25)
[2017-02-25] MEDS: TACROLIMUS 1 MG CAP PO SCH (08:39)
[2017-02-25] MEDS: predniSONE 5 MG TAB PO SCH (08:39)
[2017-02-25] MEDS: INSULIN HUMAN NPH/R 70/30 1,000 UNITS/10 ML VIAL SQ SCH ×2 (08:44→20:29)
[2017-02-25] MEDS: SODIUM CHLORIDE 0.9% FLUSH 10 ML FLUSH IV FLUSH SCH ×2 (08:47→20:27)
--- NOTE | 2017-02-25 12:05 | HHI.NPPN ---
Subjective History of Present Illness 76 year old Kidney transplant, UTI with hematuria Additional Remarks Patient is alert, no SOB, eating well, no nausea. Review of Systems General Constitutional: Fatigue Objective Data Data Vital Signs Date Time Temp Pulse Resp B/P (MAP) Pulse Ox O2 Delivery O2 Flow Rate FiO2 02/25/17 08:59 78 02/25/17 08:50 78 02/25/17 08:00 98.3 67 18 159/71 (100) 93 02/25/17 04:00 98.4 62 17 154/75 (101) 91 02/25/17 00:59 97.5 62 17 151/69 (96) 94 02/24/17 22:36 64 02/24/17 20:00 98.4 65 17 166/72 (103) 92 02/24/17 17:45 92 Nasal Cannula 3.00 02/24/17 16:00 97.9 62 18 150/67 (94) 92 02/24/17 14:30 93 Nasal Cannula 3.00 -: 02/24/17 0420 02/24/17 0420 Physical Exam General Appearance: No Acute Distress, Comfortable Neck Neck Exam: Neck Supple Pulmonary Resp Exam: Decreased Bases Cardiology CV Exam: Regular, Normal Sinus Rhythm Gastrointestinal/Abdomen GI Exam: Soft, Non-Tender, Bowel Sounds Present Extremeties Extremities Exam: Trace Edema Neurologic Neuro Exam: Alert, Awake Psychiatric Psych Exam: Appropriate Responses Assessment/Plan Problem List: (1) Kidney transplant status, cadaveric ICD Codes: Z94.0 - Kidney transplant status Status: Acute Plan: hematuria s/p Louise now bladder irrigated and it is better , Urology consult appreciated urine clear continue with antibiotic, cr better at 2.2 UTI Ecoli on Ceftriaxone hematuria subsided No new BMP. Creatinine was 2.1, Prograf level was 5.0. Check BMP in AM, if stable possible D/C. (2) Immunosuppression ICD Codes: D89.9 - Disorder involving the immune mechanism, unspecified Plan: Continue his prednisone, Prograf and CellCept (3) UTI (urinary tract infection) ICD Codes: N39.0 - Urinary tract infection, site not specified Status: Acute Plan: Vancomycin and Zosyn as given (4) Diabetes ICD Codes: E11.9 - Type 2 diabetes mellitus without complications Status: Acute Plan: Continue to monitor Problem Qualifiers (1) UTI (urinary tract infection): Qualified Codes: N30.01 - Acute cystitis with hematuria (2) Diabetes: Ricco Basilio MD Feb 25, 2017 12:05
--- NOTE | 2017-02-25 16:04 | HHI.PR ---
Subjective Remarks Denies cp/sob denies fevers/chills denies clots had small amount of hematuria earler today but has resolved Objective Vitals Vital Signs Date Time Temp Pulse Resp B/P (MAP) Pulse Ox O2 Delivery O2 Flow Rate FiO2 02/25/17 12:00 98.1 65 18 148/70 (96) 93 02/25/17 08:59 78 02/25/17 08:50 78 02/25/17 08:00 98.3 67 18 159/71 (100) 93 02/25/17 04:00 98.4 62 17 154/75 (101) 91 02/25/17 00:59 97.5 62 17 151/69 (96) 94 02/24/17 22:36 64 02/24/17 20:00 98.4 65 17 166/72 (103) 92 02/24/17 17:45 92 Nasal Cannula 3.00 I/O 02/24/17 02/24/17 02/24/17 02/25/17 02/25/17 02/25/17 07:00 15:00 23:00 07:00 15:00 23:00 Intake Total 250 ml 1080 ml 240 ml Output Total 850 ml 2000 ml 800 ml Balance -600 ml -920 ml -560 ml Intake Oral 250 ml 1080 ml 240 ml Output Urine Total 850 ml 2000 ml 800 ml # Bowel Movements 0 Result Diagram: 02/24/17 0420 02/24/17 0420 Imaging Last Impressions Chest X-Ray 02/22/17 0000 Signed Impressions: Service Date/Time: January 23:28 - CONCLUSION: 1. Interstitial prominence bilaterally of uncertain chronicity. In the acute setting this could represent mild interstitial edema. No other acute finding is identified. 2. Mildly enlarged cardiac silhouette. Donnell Lynch MD Renal Ultrasound 02/21/17 0000 Signed Impressions: Service Date/Time: Tuesday, February 21, 2017 11:59 - CONCLUSION: There is no hydronephrosis.. I see no ancillary signs of rejection. Ole Godoy MD FACR Objective Remarks AAOx3, nad, sitting in chair eating dinner Diminished breath sounds BL, no crackles, wheezing or rhonchi auscultated. S1S2 RRR no MRG Clear lungs BL Abdomen soft, NT, ND Medications and IVs Current Medications Medications (Trade) Dose Ordered Sig/Larry Route Start Time Stop Time Status Last Admin (D50w (Vial) Inj) 50 ml UNSCH PRN IV 02/21/17 10:30 (Glucagon Inj) 1 mg UNSCH PRN OTHER 02/21/17 10:30 (NovoLOG SUPPLEMENTAL SCALE) 1 ACHS SLIDING SCALE SQ 02/21/17 11:00 02/25/17 11:10 (NS Flush) 2 ml UNSCH PRN IV FLUSH 02/21/17 10:30 (NS Flush) 2 ml BID IV FLUSH 02/21/17 21:00 02/25/17 08:47 (Tylenol) 650 mg Q4H PRN PO 02/21/17 10:30 02/24/17 03:58 (Zofran Inj) 4 mg Q6H PRN IVP 02/21/17 10:30 (Compazine Supp) 25 mg Q12H PRN RECTAL 02/21/17 10:30 (Ambien) 5 mg HS PRN PO 02/21/17 10:30 02/22/17 00:37 (Tylenol) 650 mg Q6H PRN PO 02/21/17 10:30 (Percocet 5-325 Mg) 1 tab Q6H PRN PO 02/21/17 10:30 02/22/17 16:01 (Percocet 10-325 Mg) 1 tab Q6H PRN PO 02/21/17 10:30 02/22/17 01:51 (Morphine Inj) 2 mg Q3H PRN IV 02/21/17 10:30 (Morphine Inj) 4 mg Q3H PRN IV 02/21/17 10:30 (Narcan Inj) 0.4 mg UNSCH PRN IV 02/21/17 10:30 (Lena-Colace) 1 tab BID PO 02/21/17 21:00 02/25/17 08:38 (Milk Of Magnesia Liq) 30 ml Q12H PRN PO 02/21/17 10:30 (Senokot) 17.2 mg Q12H PRN PO 02/21/17 10:30 (Dulcolax Supp) 10 mg DAILY PRN RECTAL 02/21/17 10:30 (Lactulose Liq) 30 ml DAILY PRN PO 02/21/17 10:30 (Norvasc) 10 mg DAILY PO 02/22/17 09:00 02/25/17 08:38 (Aspirin Chew) 81 mg DAILY CHEW 02/22/17 09:00 Future Hold (Rocaltrol) 0.25 mcg DAILY PO 02/22/17 09:00 02/25/17 08:38 (Vitamin D3) 1,000 units DAILY PO 02/22/17 09:00 02/25/17 08:39 (Zetia) 10 mg HS PO 02/21/17 21:00 02/24/17 22:07 (Apresoline) 50 mg BID PO 02/21/17 21:00 02/25/17 08:38 (Cellcept) 500 mg BID@0600,1800 PO 02/21/17 18:00 02/25/17 05:59 (Bystolic) 5 mg DAILY PO 02/22/17 09:00 02/25/17 08:38 (Protonix) 40 mg DAILY PO 02/22/17 09:00 02/25/17 08:38 (Deltasone) 5 mg DAILY PO 02/22/17 09:00 02/25/17 08:39 (Prograf) 0.5 mg HS PO 02/21/17 21:00 02/24/17 21:56 (Prograf) 1 mg DAILY PO 02/22/17 09:00 02/25/17 08:39 (Flomax) 0.4 mg BID PO 02/21/17 21:00 02/25/17 08:39 (NovoLIN 70/30 INJ) 20 units BID SQ 02/21/17 21:00 02/25/17 08:44 (Ocuvite) 1 tab DAILY PO 02/22/17 09:00 02/25/17 08:38 Ceftriaxone Sodium 2000 mg/ Sodium Chloride 100 ml @ 200 mls/hr Q24H IV 02/23/17 17:00 02/24/17 16:54 (Lasix) 40 mg DAILY PO 02/24/17 09:00 02/25/17 08:39 A/P Problem List: (1) Sepsis ICD Code: A41.9 - Sepsis, unspecified organism (2) UTI (urinary tract infection) ICD Code: N39.0 - Urinary tract infection, site not specified Status: Acute (3) Hyperlipidemia ICD Code: E78.5 - Hyperlipidemia, unspecified (4) Kidney transplant status, cadaveric ICD Code: Z94.0 - Kidney transplant status Status: Acute (5) Hypertension ICD Code: I10 - Essential (primary) hypertension Status: Acute (6) Diabetes ICD Code: E11.9 - Type 2 diabetes mellitus without complications Status: Acute (7) Acute renal failure ICD Code: N17.9 - Acute kidney failure, unspecified Status: Acute (8) GERD (gastroesophageal reflux disease) ICD Code: K21.9 - Gastro-esophageal reflux disease without esophagitis Status: Chronic (9) BPH (benign prostatic hyperplasia) ICD Code: N40.0 - Benign prostatic hyperplasia without lower urinary tract symptoms (10) Immunosuppression ICD Code: D89.9 - Disorder involving the immune mechanism, unspecified (11) SOB (shortness of breath) ICD Code: R06.02 - Shortness of breath Status: Resolved Assessment and Plan (1) Sepsis Plan: Severe Sepsis present on admission. Due to UTI Patient started on broad spectrum IV antibiotics. 02/23 Urine culture is growing E Coli - Dc IV zosyn and start on IV Rocephin. Blood cultures negative x2. Continue to monitor blood cultures and vital signs. Patient still having fevers. DC IV fluids given patient having shortness of breath earlier. 02/24 Continue IV Rocephin. Fever is trending down and only had low grade temp this am. Blood cultures negative to date. (2) UTI (urinary tract infection) Plan: E coli uti. continue IV rocephin. (3) Hyperlipidemia Plan: Continue Zetia. (4) Kidney transplant status, cadaveric Plan: Nephrology consulted and following. Fu recommendations. renal us did not show any evidence of hydronephrosis or rejection. Continue Tacrolimus and prednisone. Tacrolimus level is 5.0. (5) Hypertension Plan: Continue antihypertensive medications. Currently on amlodpine, Bystolic and hydralazine. Bp elevated earlier today, now better. Losartan held due to TAMERA. (6) Diabetes Plan: Hemoglobin A1c 5.9. Diabetes is controlled. (7) Acute renal failure Plan: TAMERA on ckd stage III. Baseline creatinine 1.6 to 1.7. Continue adkins catheter nephrology and urology consulted - fu recommendations. Patient will need cystoscopy as an outpatient. 02/25 Creatinine is trending down. fu BMP (8) GERD (gastroesophageal reflux disease) Plan: Continue PPI. Stable. (9) BPH (benign prostatic hyperplasia) Plan: Continue Flomax. Continue Adkins catheter. fu urology recommendations. Due to hematuria possible hemorrhagic cystitis after radiation therapy vs recurrent prostate cancer. Will need cystoscopy as an outpatient. (10) Immunosuppression Plan: No evidence of rejection on ultrasound. Continue immunosupressive therapy as per renal recommendations. (11) SOB (shortness of breath) Plan: Patient with shortness of breath and hypoxemia overnight, responded well to IV Lasix administered by the overnight team. Suspect congestive heart failure. Chest x-ray obtained showed interstitial prominence bilaterally of uncertain chronicity. In the acute setting this could represent mild interstitial edema. There is a mildly enlarged cardiac silhouette. Will check 2-D echocardiogram and continue with Lasix 40 mg by mouth daily. 02/25 Denies sob. Echo pending. Repeat CXR in am. GI prophylaxis: PPI. DVT prophylaxis: SCDs, no chemoprophylaxis secondary to hematuria. Discharge Planning Continue to monitor in the medical floor. Discharge pending resolution of fevers and echocardiogram. Problem Qualifiers (1) Sepsis: Qualified Codes: A41.9 - Sepsis, unspecified organism (2) UTI (urinary tract infection): Qualified Codes: N30.01 - Acute cystitis with hematuria (3) Hyperlipidemia: Qualified Codes: E78.5 - Hyperlipidemia, unspecified (4) Diabetes: (5) GERD (gastroesophageal reflux disease): Qualified Codes: K21.9 - Gastro-esophageal reflux disease without esophagitis Primo Whyte MD Feb 25, 2017 16:04
[2017-02-25 17:26] LABS: BICARBONATE 24.9 MEQ/L (21.0-32.0); POTASSIUM 3.8 MEQ/L (3.5-5.1)
[2017-02-25] MEDS: cefTRIAXone INJ 2,000 MG in SODIUM CHLORIDE 0.9% INJ 100 ML IV SCH (17:55)
[2017-02-25] MEDS: TACROLIMUS 0.5 MG CAP PO SCH (20:24)
[2017-02-25] MEDS: EZETIMIBE 10 MG TAB PO SCH (20:25)
[2017-02-26] VITALS: BP 141/70; PULSE 60; RESP 20; TEMP 97.7; O2SAT 94
[2017-02-26 04:00] VITALS: BP 175/78; PULSE 60; RESP 20; TEMP 97.1; O2SAT 94
[2017-02-26] MEDS: MYCOPHENOLATE MOFETIL 500 MG TAB PO SCH (05:22)
[2017-02-26] MEDS: INSULIN ASPART SUPPLEMENTAL SCALE SQ SCH ×2 (05:25→11:53)
[2017-02-26 08:00] VITALS: BP 183/103; PULSE 68; RESP 18; TEMP 97.6; O2SAT 95
[2017-02-26] MEDS: DOCUSATE SODIUM 50 MG/SENNA 8.6 MG TAB PO SCH (09:00)
--- NOTE | 2017-02-26 09:19 | RADRPT ---
EXAM DATE/TIME: 02/26/2017 08:59 [facility] COMPARISON: CHEST SINGLE AP, February 22, 2017, 23:28. INDICATIONS : Congestion. MEDICAL HISTORY : Hypertension. Diabetes mellitus type II. Carcinoma, prostatic. SURGICAL HISTORY : Coronary artery stent. Aortic valve replacement. ENCOUNTER: Subsequent ACUITY: 4 - 6 days PAIN SCORE: 0/10 LOCATION: Bilateral chest FINDINGS: No sternotomy wires are noted. No consolidation or effusion. Cardiac valvular prosthesis. CONCLUSION: No acute disease. Madi Cormier MD on February 26, 2017 at 9:17 Board Certified Radiologist. This report was verified electronically.
[2017-02-26] MEDS: hydrALAZINE HCL 50 MG TAB PO SCH (09:43)
[2017-02-26] MEDS: NEBIVOLOL 5 MG TAB PO SCH (09:43)
[2017-02-26] MEDS: CHOLECALCIFEROL (VIT D3) 1000 UNIT TAB PO SCH (09:43)
[2017-02-26] MEDS: PANTOPRAZOLE SOD 40 MG DELAYED RELEASE TAB PO SCH (09:43)
[2017-02-26] MEDS: TAMSULOSIN HCL 0.4 MG CAP PO SCH (09:43)
[2017-02-26] MEDS: MULTIVITAMIN-OPHTHALMIC 1 TAB PO SCH (09:43)
[2017-02-26] MEDS: predniSONE 5 MG TAB PO SCH (09:43)
[2017-02-26] MEDS: FUROSEMIDE 40 MG TAB PO SCH (09:43)
[2017-02-26] MEDS: CALCITRIOL 0.25 MCG CAP PO SCH (09:44)
[2017-02-26] MEDS: INSULIN HUMAN NPH/R 70/30 1,000 UNITS/10 ML VIAL SQ SCH (09:47)
[2017-02-26] MEDS: SODIUM CHLORIDE 0.9% FLUSH 10 ML FLUSH IV FLUSH SCH (09:49)
[2017-02-26] MEDS: TACROLIMUS 1 MG CAP PO SCH (09:49)
[2017-02-26 10:26] VITALS: O2SAT 96
[2017-02-26 12:00] VITALS: BP 159/70; PULSE 57; RESP 18; TEMP 96.8; O2SAT 94
--- NOTE | 2017-02-26 12:14 | ECHRPT ---
Indication: PULMONARY EDEMA CONCLUSIONS Mildly dilated left ventricle. Mild concentric left ventricular hypertrophy. The left ventricular systolic function is grossly normal on limited imaging. There is abnormal (paradoxical) septal motion consistent with postoperative state. The left atrial size is moderately dilated. The right atrial size is [id number] dilated. No atrial level shunt is demonstrated by color flow Doppler interrogation. Mitral annular calcification is present. Trace mitral valve regurgitation. The aortic valve prosthesis is normal to two-dimensional, color flow and Doppler interrogation. Aortic valve area is 1.2 cm. Aortic valve mean gradient is 27 mmHg. Bovine Bioprosthesis There is mild tricuspid valve regurgitation. There is estimated moderate pulmonary hypertension present (range 50-60 mmHg). The pulmonary valve is not well visualized. The inferior vena cava (IVC) is normal in size. There is greater than 50% respiratory change in dimension of the inferior vena cava (normal). BP: 178 / 73 HR: 65 Rhythm: Sinus MEASUREMENTS (Male / Female) Normal Values Technical Quality:Fair 2D ECHO LV Diastolic Diameter PLAX 6.1 cm 4.2 - 5.9 / 3.9 - 5.3 cm LV Systolic Diameter PLAX 3.4 cm IVS Diastolic Thickness 1.2 cm 0.6 - 1.0 / 0.6 - 0.9 cm LVPW Diastolic Thickness 1.2 cm 0.6 - 1.0 / 0.6 - 0.9 cm LV Relative Wall Thickness 0.4 LVOT Diameter 1.9 cm Aortic Root Diameter 3.0 cm LA Systolic Diameter LX 4.7 cm 3.0 - 4.0 / 2.7 - 3.8 cm M-MODE AV Cusp Separation MM 1.8 cm DOPPLER AV Peak Velocity 353.0 cm/s AV Peak Gradient 49.8 mmHg AV Mean Gradient 27.0 mmHg AV Velocity Time Integral 77.1 cm LVOT Peak Velocity 159.0 cm/s LVOT Peak Gradient 10.1 mmHg LVOT Velocity Time Integral 33.4 cm LVOT Cardiac Index 2746.1 cm/minm AV Area Cont Eq vti 1.2 cm AV Area Cont Eq pk 1.3 cm Mitral E Point Velocity 135.0 cm/s Mitral A Point Velocity 101.0 cm/s Mitral E to A Ratio 1.3 LV E' Lateral Velocity 8.4 cm/s Mitral E to LV E' Lateral Ratio 16.1 LV E' Septal Velocity 5.9 cm/s Mitral E to LV E' Septal Ratio 22.7 TR Peak Velocity 341.0 cm/s TR Peak Gradient 46.5 mmHg PV Peak Velocity 100.0 cm/s PV Peak Gradient 4.0 mmHg FINDINGS LEFT VENTRICLE Mildly dilated left ventricle. Mild concentric left ventricular hypertrophy. The left ventricular systolic function is grossly normal. Ejection fraction around 50%. There is abnormal (paradoxical) septal motion consistent with postoperative state. Left ventricular diastolic function parameters are normal. RIGHT VENTRICLE Normal right ventricular size and systolic function. LEFT ATRIUM The left atrial size is moderately dilated. RIGHT ATRIUM The right atrial size is [id number] dilated. ATRIAL SEPTUM No atrial level shunt is demonstrated by color flow Doppler interrogation. AORTA The aortic root and proximal ascending aorta are normal in size on limited imaging. MITRAL VALVE Structurally normal mitral valve. Mitral annular calcification is present. Trace mitral valve regurgitation. AORTIC VALVE The aortic valve prosthesis is normal to two-dimensional, color flow and Doppler interrogation. Aortic valve area is 1.2 cm. Aortic valve mean gradient is 27 mmHg. Bovine Bioprosthesis TRICUSPID VALVE Structurally normal tricuspid valve. There is mild tricuspid valve regurgitation. There is estimated moderate pulmonary hypertension present (range 50-60 mmHg). PULMONARY VALVE The pulmonary valve is not well visualized. VESSELS The inferior vena cava (IVC) is normal in size. There is greater than 50% respiratory change in dimension of the inferior vena cava (normal). PERICARDIUM No pericardial effusion. Stefani Encarnacion MD (Electronically Signed) Final Date:26 February 2017 12:13
[2017-02-26] MEDS ORDERED: FURO40TA PO (13:47)
--- NOTE | 2017-02-26 13:48 | HHI.DCPOC ---
Discharge Care Plan Diagnosis: (1) Acute on chronic diastolic (congestive) heart failure (2) Acute renal failure (3) UTI (urinary tract infection) (4) Diabetes (5) Hyperlipidemia (6) Hypertension (7) BPH (benign prostatic hyperplasia) (8) Immunosuppression (9) Sepsis (10) Kidney transplant status, cadaveric (11) GERD (gastroesophageal reflux disease) Goals to Promote Your Health * To prevent worsening of your condition and complications * To maintain your health at the optimal level Directions to Meet Your Goals Take your medications as prescribed Follow your dietary instruction Follow activity as directed Keep your appointments as scheduled Take your immunizations and boosters as scheduled If your symptoms worsen call your PCP, if no PCP go to Urgent Care Center or Emergency Room Smoking is Dangerous to Your Health. Avoid second hand smoke Call the 24-hour hour crisis hotline for domestic abuse at Primo Whyte MD Feb 26, 2017 13:48
--- NOTE | 2017-02-26 14:00 | HHI.PR ---
Subjective Remarks Denies cp sob improved. Bp elevated previously - now better. Objective Vitals Vital Signs Date Time Temp Pulse Resp B/P (MAP) Pulse Ox O2 Delivery O2 Flow Rate FiO2 02/26/17 12:00 96.8 57 18 159/70 (99) 94 02/26/17 10:26 96 Nasal Cannula 3.00 02/26/17 08:00 97.6 68 18 183/103 (129) 95 02/26/17 04:00 97.1 60 20 175/78 (110) 94 02/26/17 00:00 97.7 60 20 141/70 (93) 94 02/25/17 20:15 56 02/25/17 20:00 97.4 59 22 145/73 (97) 94 02/25/17 17:52 93 Nasal Cannula 3.00 I/O 02/25/17 02/25/17 02/25/17 02/26/17 02/26/17 02/26/17 07:00 15:00 23:00 07:00 15:00 23:00 Intake Total 240 ml 600 ml 420 ml Output Total 800 ml 1950 ml 1700 ml Balance -560 ml -1350 ml -1280 ml Intake Oral 240 ml 600 ml 320 ml IV Total 100 ml Output Urine Total 800 ml 1950 ml 1700 ml # Bowel Movements 0 0 Result Diagram: 02/24/17 0420 02/25/17 1630 Imaging Last Impressions Chest X-Ray 02/26/17 0800 Signed Impressions: Service Date/Time: Sunday, February 26, 2017 08:59 - CONCLUSION: No acute disease. Madi Cormier MD Renal Ultrasound 02/21/17 0000 Signed Impressions: Service Date/Time: Tuesday, February 21, 2017 11:59 - CONCLUSION: There is no hydronephrosis.. I see no ancillary signs of rejection. Ole Godoy MD FACR Objective Remarks AAOx3, nad, sitting in chair eating dinner S1S2 RRR no MRG Clear lungs BL Abdomen soft, NT, ND Medications and IVs Current Medications Medications (Trade) Dose Ordered Sig/Larry Route Start Time Stop Time Status Last Admin (D50w (Vial) Inj) 50 ml UNSCH PRN IV 02/21/17 10:30 (Glucagon Inj) 1 mg UNSCH PRN OTHER 02/21/17 10:30 (NovoLOG SUPPLEMENTAL SCALE) 1 ACHS SLIDING SCALE SQ 02/21/17 11:00 02/26/17 11:53 (NS Flush) 2 ml UNSCH PRN IV FLUSH 02/21/17 10:30 (NS Flush) 2 ml BID IV FLUSH 02/21/17 21:00 02/26/17 09:49 (Tylenol) 650 mg Q4H PRN PO 02/21/17 10:30 02/24/17 03:58 (Zofran Inj) 4 mg Q6H PRN IVP 02/21/17 10:30 (Compazine Supp) 25 mg Q12H PRN RECTAL 02/21/17 10:30 (Ambien) 5 mg HS PRN PO 02/21/17 10:30 02/22/17 00:37 (Tylenol) 650 mg Q6H PRN PO 02/21/17 10:30 (Percocet 5-325 Mg) 1 tab Q6H PRN PO 02/21/17 10:30 02/22/17 16:01 (Percocet 10-325 Mg) 1 tab Q6H PRN PO 02/21/17 10:30 02/22/17 01:51 (Morphine Inj) 2 mg Q3H PRN IV 02/21/17 10:30 (Morphine Inj) 4 mg Q3H PRN IV 02/21/17 10:30 (Narcan Inj) 0.4 mg UNSCH PRN IV 02/21/17 10:30 (Lena-Colace) 1 tab BID PO 02/21/17 21:00 02/25/17 08:38 (Milk Of Magnesia Liq) 30 ml Q12H PRN PO 02/21/17 10:30 (Senokot) 17.2 mg Q12H PRN PO 02/21/17 10:30 (Dulcolax Supp) 10 mg DAILY PRN RECTAL 02/21/17 10:30 (Lactulose Liq) 30 ml DAILY PRN PO 02/21/17 10:30 (Norvasc) 10 mg DAILY PO 02/22/17 09:00 02/26/17 09:44 (Aspirin Chew) 81 mg DAILY CHEW 02/22/17 09:00 Future Hold (Rocaltrol) 0.25 mcg DAILY PO 02/22/17 09:00 02/26/17 09:44 (Vitamin D3) 1,000 units DAILY PO 02/22/17 09:00 02/26/17 09:43 (Zetia) 10 mg HS PO 02/21/17 21:00 02/25/17 20:25 (Apresoline) 50 mg BID PO 02/21/17 21:00 02/26/17 09:43 (Cellcept) 500 mg BID@0600,1800 PO 02/21/17 18:00 02/26/17 05:22 (Bystolic) 5 mg DAILY PO 02/22/17 09:00 02/26/17 09:43 (Protonix) 40 mg DAILY PO 02/22/17 09:00 02/26/17 09:43 (Deltasone) 5 mg DAILY PO 02/22/17 09:00 02/26/17 09:43 (Prograf) 0.5 mg HS PO 02/21/17 21:00 02/25/17 20:24 (Prograf) 1 mg DAILY PO 02/22/17 09:00 02/26/17 09:49 (Flomax) 0.4 mg BID PO 02/21/17 21:00 02/26/17 09:43 (NovoLIN 70/30 INJ) 20 units BID SQ 02/21/17 21:00 02/26/17 09:47 (Ocuvite) 1 tab DAILY PO 02/22/17 09:00 02/26/17 09:43 Ceftriaxone Sodium 2000 mg/ Sodium Chloride 100 ml @ 200 mls/hr Q24H IV 02/23/17 17:00 02/25/17 17:55 (Lasix) 40 mg DAILY PO 02/24/17 09:00 02/26/17 09:43 A/P Problem List: (1) Sepsis ICD Code: A41.9 - Sepsis, unspecified organism (2) UTI (urinary tract infection) ICD Code: N39.0 - Urinary tract infection, site not specified Status: Acute (3) Hyperlipidemia ICD Code: E78.5 - Hyperlipidemia, unspecified (4) Kidney transplant status, cadaveric ICD Code: Z94.0 - Kidney transplant status Status: Acute (5) Hypertension ICD Code: I10 - Essential (primary) hypertension Status: Acute (6) Diabetes ICD Code: E11.9 - Type 2 diabetes mellitus without complications Status: Acute (7) Acute renal failure ICD Code: N17.9 - Acute kidney failure, unspecified Status: Acute (8) GERD (gastroesophageal reflux disease) ICD Code: K21.9 - Gastro-esophageal reflux disease without esophagitis Status: Chronic (9) BPH (benign prostatic hyperplasia) ICD Code: N40.0 - Benign prostatic hyperplasia without lower urinary tract symptoms (10) Immunosuppression ICD Code: D89.9 - Disorder involving the immune mechanism, unspecified (11) SOB (shortness of breath) ICD Code: R06.02 - Shortness of breath Status: Resolved Assessment and Plan (1) Sepsis Plan: Severe Sepsis present on admission. Due to UTI Patient started on broad spectrum IV antibiotics. 02/23 Urine culture is growing E Coli - Dc IV zosyn and start on IV Rocephin. Blood cultures negative x2. Continue to monitor blood cultures and vital signs. Patient still having fevers. DC IV fluids given patient having shortness of breath earlier. 02/24 Continue IV Rocephin. Fever is trending down and only had low grade temp this am. Blood cultures negative to date. 02/25 Will DC on Cefuroxime to get total 10 days. Sepsis resolved. (2) UTI (urinary tract infection) Plan: E coli uti. continue IV rocephin. (3) Hyperlipidemia Plan: Continue Zetia. (4) Kidney transplant status, cadaveric Plan: Nephrology consulted and following. Fu recommendations. renal us did not show any evidence of hydronephrosis or rejection. Continue Tacrolimus and prednisone. Tacrolimus level is 5.0. (5) Hypertension Plan: Continue antihypertensive medications. Currently on amlodpine, Bystolic and hydralazine. Bp elevated earlier today, now better. Losartan held due to TAMERA. (6) Diabetes Plan: Hemoglobin A1c 5.9. Diabetes is controlled. (7) Acute renal failure Plan: TAMERA on ckd stage III. Baseline creatinine 1.6 to 1.7. Continue adkins catheter nephrology and urology consulted - fu recommendations. Patient will need cystoscopy as an outpatient. 02/25 Creatinine is trending down. fu BMP 9.4 Creatinine down to 1.4 - Cleared by nephrology for DC. (8) GERD (gastroesophageal reflux disease) Plan: Continue PPI. Stable. (9) BPH (benign prostatic hyperplasia) Plan: Continue Flomax. Continue Adkins catheter. fu urology recommendations. Due to hematuria possible hemorrhagic cystitis after radiation therapy vs recurrent prostate cancer. Will need cystoscopy as an outpatient. 02/26 Will remove adkins catheter and DC if voiding trials successful. (10) Immunosuppression Plan: No evidence of rejection on ultrasound. Continue immunosupressive therapy as per renal recommendations. (11) SOB (shortness of breath) Plan: Patient with shortness of breath and hypoxemia overnight, responded well to IV Lasix administered by the overnight team. Suspect congestive heart failure. Chest x-ray obtained showed interstitial prominence bilaterally of uncertain chronicity. In the acute setting this could represent mild interstitial edema. There is a mildly enlarged cardiac silhouette. Will check 2-D echocardiogram and continue with Lasix 40 mg by mouth daily. 02/26 Echo cardiac showed mild concentric left ventricle hypertrophy, left ventricle systolic function grossly normal on limited imaging. Shots of breath likely secondary to acute on chronic diastolic heart failure. Continue Lasix on discharge. GI prophylaxis: PPI. DVT prophylaxis: SCDs, no chemoprophylaxis secondary to hematuria. Discharge Planning Will DC home if successful voiding trials. Discussed with RN. Problem Qualifiers (1) Sepsis: Qualified Codes: A41.9 - Sepsis, unspecified organism (2) UTI (urinary tract infection): Qualified Codes: N30.01 - Acute cystitis with hematuria (3) Hyperlipidemia: Qualified Codes: E78.5 - Hyperlipidemia, unspecified (4) Hypertension: Qualified Codes: I10 - Essential (primary) hypertension (5) Diabetes: (6) Acute renal failure: Qualified Codes: N17.9 - Acute kidney failure, unspecified (7) GERD (gastroesophageal reflux disease): Qualified Codes: K21.9 - Gastro-esophageal reflux disease without esophagitis (8) BPH (benign prostatic hyperplasia): Qualified Codes: N40.1 - Benign prostatic hyperplasia with lower urinary tract symptoms; N13.8 - Other obstructive and reflux uropathy Primo Whyte MD Feb 26, 2017 14:00
--- NOTE | 2017-02-26 14:11 | HHI.DS ---
Discharge Summary Admission Date Feb 21, 2017 at 10:11 Discharge Date: Feb 26, 2017 Admitting Diagnosis UTI/acute renal failure/kidney transplant (1) Sepsis ICD Code: A41.9 - Sepsis, unspecified organism Diagnosis: Principal (2) E. coli UTI ICD Code: N39.0 - Urinary tract infection, site not specified; B96.20 - Unspecified Escherichia coli [E. coli] as the cause of diseases classified elsewhere Diagnosis: Principal (3) Hyperlipidemia ICD Code: E78.5 - Hyperlipidemia, unspecified Diagnosis: Secondary (4) Kidney transplant status, cadaveric ICD Code: Z94.0 - Kidney transplant status Diagnosis: Principal Status: Acute (5) Hypertension ICD Code: I10 - Essential (primary) hypertension Status: Acute (6) Diabetes ICD Code: E11.9 - Type 2 diabetes mellitus without complications Diagnosis: Secondary Status: Acute (7) Acute renal failure ICD Code: N17.9 - Acute kidney failure, unspecified Diagnosis: Principal Status: Acute (8) GERD (gastroesophageal reflux disease) ICD Code: K21.9 - Gastro-esophageal reflux disease without esophagitis Diagnosis: Secondary Status: Chronic (9) BPH (benign prostatic hyperplasia) ICD Code: N40.0 - Benign prostatic hyperplasia without lower urinary tract symptoms Diagnosis: Principal (10) Immunosuppression ICD Code: D89.9 - Disorder involving the immune mechanism, unspecified Diagnosis: Secondary (11) SOB (shortness of breath) ICD Code: R06.02 - Shortness of breath Diagnosis: Principal Status: Resolved (12) Acute on chronic diastolic (congestive) heart failure ICD Code: I50.33 - Acute on chronic diastolic (congestive) heart failure Diagnosis: Principal Procedures none Brief History - From Admission 76-year-old male with history of diabetes, hypertension, end-stage renal disease , status post renal transplant, on tacrolimus, for chronic immunosuppression presents to the ER today because he has had a few days history of discomfort at the right lower quadrant transplant site, nausea, vomiting, fevers, and cloudy looking urine and dysuria. He has had recent UTIs according to patient' s . Modifying Factors: None Associated Signs & Symptoms: Urinary symptoms, pain at renal transplant site, fevers, nausea and vomiting Risk Factors: Renal transplant Found to have a urinary tract infection again we will dose with Zosyn and vancomycin with pharmacy to dose. We'll consult nephrology. And will continue to monitor here throughout the admission for any other issues that may arise will place on fluid rehydration and monitor CBC/BMP: 02/24/17 0420 02/25/17 1630 Significant Findings Laboratory Tests Test 02/24/17 04:20 02/25/17 16:30 Red Blood Count 3.68 MIL/MM3 (4.50-5.90) Hemoglobin 11.0 GM/DL (13.0-17.0) Hematocrit 33.5 % (39.0-51.0) Platelet Count 113 TH/MM3 (150-450) Neutrophils (%) (Auto) 83.3 % (16.0-70.0) Lymphocytes (%) (Auto) 5.4 % (9.0-44.0) Monocytes (%) (Auto) 10.8 % (0.0-8.0) Lymphocytes # (Auto) 0.3 TH/MM3 (1.0-4.8) Blood Urea Nitrogen 37 MG/DL (7-18) 37 MG/DL (7-18) Creatinine 2.11 MG/DL (0.60-1.30) 1.81 MG/DL (0.60-1.30) Random Glucose 70 MG/DL (74-106) 218 MG/DL (74-106) Total Protein 6.0 GM/DL (6.4-8.2) Albumin 2.5 GM/DL (3.4-5.0) Calcium Level 8.2 MG/DL (8.5-10.1) Phosphorus Level 2.2 MG/DL (2.5-4.9) Alkaline Phosphatase 33 U/L (45-117) Estimat Glomerular Filtration Rate 31 ML/MIN (>89) 37 ML/MIN (>89) Imaging Last Impressions Chest X-Ray 02/26/17 0800 Signed Impressions: Service Date/Time: Sunday, February 26, 2017 08:59 - CONCLUSION: No acute disease. Madi Cormier MD Renal Ultrasound 02/21/17 0000 Signed Impressions: Service Date/Time: Tuesday, February 21, 2017 11:59 - CONCLUSION: There is no hydronephrosis.. I see no ancillary signs of rejection. Ole Godoy MD FACR PE at Discharge AAOx3, nad, sitting in chair eating dinner S1S2 RRR no MRG Clear lungs BL Abdomen soft, NT, ND Pt update on day of discharge Patient denies cp/sob. no further fevers. Patient wants to go home. cleared by nephrology however will Dc adkins and will DC if successful voiding trials. This was discussed with RN. Hospital Course (1) Sepsis Severe Sepsis present on admission. Due to UTI Patient started on broad spectrum IV antibiotics. The patient was started on IV Zosyn which was discontinued on 02/23. Patient then was started on IV Rocephin. Blood cultures negative 5. Sepsis resolved upon discharge. Vital signs and temperature were monitored, the patient was afebrile upon discharge. Patient will be discharged on oral cefuroxime to get a total of 10 days (2) UTI (urinary tract infection) E coli uti. Status post treatment with IV Rocephin and discharged on oral cefuroxime. (3) Hyperlipidemia Continue Zetia. (4) Kidney transplant status, cadaveric Nephrology consulted and following. Fu recommendations. renal us did not show any evidence of hydronephrosis or rejection. Continue Tacrolimus and prednisone. Tacrolimus level is 5.0. (5) Hypertension Continue antihypertensive medications. Currently on amlodpine, Bystolic and hydralazine. Losartan held due to history of present illness. Creatinine back to baseline and certain resumed upon discharge. (6) Diabetes Hemoglobin A1c 5.9. Diabetes is controlled. (7) Acute renal failure Plan: TAMERA on ckd stage III. Baseline creatinine 1.6 to 1.7. Continue adkins catheter nephrology and urology consulted - fu recommendations. Patient will need cystoscopy as an outpatient. 9.4 Creatinine down to 1.4 - Cleared by nephrology for DC. (8) GERD (gastroesophageal reflux disease) Plan: Continue PPI. Stable. (9) BPH (benign prostatic hyperplasia) Plan: Continue Flomax. Continue Adkins catheter. fu urology recommendations. Due to hematuria possible hemorrhagic cystitis after radiation therapy vs recurrent prostate cancer. Will need cystoscopy as an outpatient. 9/4 Will remove adkins catheter and DC if voiding trials successful. (10) Immunosuppression Plan: No evidence of rejection on ultrasound. Continue immunosupressive therapy as per renal recommendations. (11) SOB (shortness of breath) Plan: Patient with shortness of breath and hypoxemia overnight, responded well to IV Lasix administered by the overnight team. Suspect congestive heart failure. Chest x-ray obtained showed interstitial prominence bilaterally of uncertain chronicity. In the acute setting this could represent mild interstitial edema. There is a mildly enlarged cardiac silhouette. Will check 2-D echocardiogram and continue with Lasix 40 mg by mouth daily. 2-D echocardiogram showed mild concentric left ventricle hypertrophy, left ventricle systolic function grossly normal on limited imaging. Shots of breath likely secondary to acute on chronic diastolic heart failure. Continue Lasix on discharge. GI prophylaxis: PPI. DVT prophylaxis: SCDs, no chemoprophylaxis given secondary to hematuria. Pt Condition on Discharge: Stable Discharge Disposition: Discharge Home Discharge Time: > 30 minutes Discharge Instructions DIET: Follow Instructions for: Heart Healthy Diet, Diabetic Diet, Renal Failure Diet Activities you can perform: Regular-No Restrictions Activities to Avoid: Prolonged Standing, Strenuous Activity Follow up Referrals: PCP Follow-up - 1 Week Urology - 2 Weeks with Juan Cordero DO New Medications: Furosemide (Furosemide) 40 Mg Tab 40 MG PO DAILY for Shortness of Breath, #30 TAB Continued Medications: Amlodipine (Amlodipine) 10 Mg Tab 10 MG PO DAILY for Blood Pressure Management, TAB 0 Refills Aspirin (Aspirin) 81 Mg Chew 81 MG CHEW DAILY, TAB 0 Refills Calcitriol (Calcitriol) 0.25 Mcg Cap 0.25 MCG PO DAILY for Calcium Supplement, CAP 0 Refills Cholecalciferol (Vitamin D-1000) 1,000 Unit Tab 1000 UNITS PO DAILY for Nutritional Supplement, BOTTLE 0 Refills Ezetimibe (Zetia) 10 Mg Tab 10 MG PO HS, TAB 0 Refills Hydralazine (Hydralazine) 100 Mg Tab 50 MG PO BID for Blood Pressure Management, TAB 0 Refills Take with meals Insulin NPH Isophane-Reg (Human) 70-30 Inj (Humulin 70-30 Kwikpen Pen Inj) 300 Unit/3 Ml Pen 20-25 UNIT SQ BID Losartan (Losartan) 25 Mg Tab 25 MG PO DAILY for Blood Pressure Management, TAB 0 Refills Mycophenolate (Mycophenolate) 500 Mg Tab 500 MG PO BID for Immunosuppression, TAB 0 Refills Nebivolol (Bystolic) 5 Mg Tab 5 MG PO DAILY for Blood Pressure Management, TAB 0 Refills Hjicj-2-Hcmh Ethyl Esters (Lovaza) 1 Gm Cap 1 GM PO BID for Manage Triglycerides, CAP 0 Refills Pantoprazole (Pantoprazole) 40 Mg Tab 40 MG PO DAILY for Reflux, TAB 0 Refills Prednisone (Prednisone) 5 Mg Tab 5 MG PO DAILY, TAB 0 Refills Tacrolimus (Tacrolimus) 0.5 Mg Cap 0.5 MG PO HS for Prevent Transplant Reject, CAP 0 Refills Tacrolimus (Tacrolimus) 1 Mg Cap 1 MG PO DAILY for Prevent Transplant Reject, CAP 0 Refills Tamsulosin (Flomax) 0.4 Mg Cap 0.4 MG PO BID for Manage Prostate Problems, CAP 0 Refills [Occuvite Lutein] () 2 MG PO DAILY Discontinued Medications: Furosemide (Furosemide) 40 Mg Tab 40 MG PO DIRECTED, #60 TAB 0 Refills Primo Whyte MD Feb 26, 2017 14:11
[2017-02-26] MEDS ORDERED: CEFU1TAB20 PO (14:31)
== END 2017-02-26 15:33 | disposition home or self-care (01) | DRG 871 ==
LOC: NEPE 06:26 → NEDA 10:11 → HCIN 15:42 → N07A 02-22 23:04
PROVIDERS: ADMIT Hospitalist; ATTEND Hospitalist
DX: A41.51 Sepsis due to Escherichia coli [E. coli] (principal); I50.33 Acute on chronic diastolic (congestive) heart failure; T86.12 Kidney transplant failure; E11.22 Type 2 diabetes mellitus with diabetic chronic kidney disease; N30.01 Acute cystitis with hematuria; I13.0 Hypertensive heart and chronic kidney disease with heart failure and stage 1 through stage 4 chronic kidney disease, or unspecified chronic kidney disease; N18.3 Chronic kidney disease, stage 3 (moderate); B96.20 Unspecified Escherichia coli [E. coli] as the cause of diseases classified elsewhere; I10 Essential (primary) hypertension; I25.10 Atherosclerotic heart disease of native coronary artery without angina pectoris; R65.20 Severe sepsis without septic shock; E78.00 Pure hypercholesterolemia, unspecified; N40.1 Benign prostatic hyperplasia with lower urinary tract symptoms; K21.9 Gastro-esophageal reflux disease without esophagitis; R09.02 Hypoxemia; R35.1 Nocturia; Y83.0 Surgical operation with transplant of whole organ as the cause of abnormal reaction of the patient, or of later complication, without mention of misadventure at the time of the procedure; Z79.52 Long term (current) use of systemic steroids; Z79.82 Long term (current) use of aspirin; Z87.440 Personal history of urinary (tract) infections; Z85.828 Personal history of other malignant neoplasm of skin; Z85.46 Personal history of malignant neoplasm of prostate; Z79.4 Long term (current) use of insulin; Z95.5 Presence of coronary angioplasty implant and graft; Z92.3 Personal history of irradiation; Z87.891 Personal history of nicotine dependence; Z95.3 Presence of xenogenic heart valve
CPT/HCPCS: 71010; 71020; 76776; 80048; 80053; 80197; 80202; 81001; 82550; 82948; 83036; 83605; 83735; 84100; 84439; 84443; 85014; 85018; 85025; 86850; 86900; 86901; 87040; 87077; 87086; 87186; 93306; 94150; 96361; 96365; J0696; J1815; J1940; J2405; J2543; J3370; J7030; J7040; J7050; J7507; J7512; J7517

== ENCOUNTER 2017-09-08 13:21 | Emergency (ER) | payer MEDICARE, BC ==
[~2017-09-08] VITALS: Ht 172.7 cm; Wt 100.0 kg
[~2017-09-08 13:21] MED LIST changes: -ALLO100T PO; +AMLO10TA2 PO; +ASPI-516 CHEW; +BYST5TAB2 PO; +CALC0.25 PO; -COLA100C PO; +EZET10 PO; +FURO40TA PO; +HYDR-3801 PO; -HYDR25TA35 PO; -INSU100V3 SQ; +INSU1INJ3 SQ; +LOSA25TA PO; -MAGN200T2 PO; -MYCO200S PO; +MYCO500T PO; -NYSTPOW30 PO; +OCCUVITE LUTEIN PO; -OXYC-360 PO; +PANT40TA3 PO; -PRED10PA PO; +PRED5TAB PO; -PROT40TA PO; -SULF1TAB47 PO; +TACR0.5C PO; -TACR1; +TACR1CAP PO; -TAMS5CAP OR; +TAMS5CAP PO; -VALG450 PO; +VITA1000 PO; -ZETI10TA5 OR; -[UNRECOGNIZED DRUG - OTHER] PO
[2017-09-08 13:45] VITALS: BP 182/77; PULSE 80; RESP 18; TEMP 98.3; O2SAT 93
[2017-09-08] MEDS ORDERED: COUM4TAB PO (15:25)
[2017-09-08 15:27] LABS: AUTOMATED NEUTROPHIL # 7.1 TH/MM3 (1.8-7.7); BASOPHIL % 0.2 % (0.0-2.0); EOSINOPHIL % 0.4 % (0.0-4.0); HEMOGLOBIN 12.1 GM/DL (13.0-17.0); LYMPH % 5.6 % (9.0-44.0); LYMPHOCYTE # 0.5 TH/MM3 (1.0-4.8); MEAN CELL VOLUME 91.8 FL (80.0-100.0); MEAN CORPUSCULAR HEMOGLOBIN 31.7 PG (27.0-34.0); MEAN CORPUSCULAR HGB CONC 34.6 % (32.0-36.0); MEAN PLATELET VOLUME 6.5 FL (7.0-11.0); MONO % 9.4 % (0.0-8.0); MONOCYTE # 0.8 TH/MM3 (0-0.9); NEUT % 84.4 % (16.0-70.0); PLATELET COUNT 227 TH/MM3 (150-450); RED BLOOD COUNT 3.81 MIL/MM3 (4.50-5.90); RED CELL DISTRIBUTION WIDTH 14.9 % (11.6-17.2); WHITE BLOOD COUNT 8.4 TH/MM3 (4.0-11.0)
[2017-09-08 15:33] LABS: BACTERIA, URINE MANY /hpf; BILIRUBIN, URINE NEG (NEG); BLOOD, URINE LARGE (NEG); GLUCOSE,URINE NEG (NEG); KETONE, URINE NEG (NEG); NITRITE,URINE NEG (NEG); SQUAMOUS EPITHELIAL CELL URINE 1 /hpf (0-5); URINE LEUKOCYTE ESTERASE LARGE (NEG); WHITE BLOOD CELL CLUMPS FEW
[2017-09-08 15:46] LABS: CALCIUM 8.7 MG/DL (8.5-10.1); CREATININE 1.65 MG/DL (0.60-1.30)
[2017-09-08 15:47] LABS: URINE COLOR LIGHT-RED (YELLW/STRAW)
[2017-09-08 15:49] LABS: INTERNATIONAL NORMALIZED RATIO 4.9 RATIO; PROTHROMBIN TIME - PATIENT 48.8 SEC (9.8-11.6)
--- NOTE | 2017-09-08 15:57 | PD ---
HPI Chief Complaint: Complaint Time Seen by Provider: 14:27 Travel History International Travel<30 days: No Contact w/Intl Traveler<30days: No Traveled to known affect area: No History of Present Illness HPI The patient is a 76-year-old male who presents to the emergency department for hematuria. The patient has a history of cadaver kidney transplant and is followed by his medical unit secretary, Dr. Mares. The patient recently was noted to have hematuria any UTI, was placed on Cipro by his urologist, Dr. Cordero. The patient then noted to have an elevated INR level with hematuria, saw his pin worker, Dr. Valenzuela, who told him to hold the Coumadin. The patient's INR at that time was 7.1. The patient was told to continue taking the Cipro, however, the hematuria has continued. He passed one small clot earlier today. He is currently on rejection medications including tacrolimus, mycophenolate, and prednisone. He denies any history of rejection. The patient denies any fever, chills, or sweats. He does note mild swelling around the right testicle has a history of previous UTI requiring hospitalization. History Past Medical History Tetanus Vaccination: > 5 Years Influenza Vaccination: Yes Social History Alcohol Use: Yes (occaisonaly) Tobacco Use: No Allergies-Medications (Allergen,Severity, Reaction): Uncoded Allergies: "BLUE CRABS" (Allergy, Severe, Rash, 04/14/12) Reported Meds & Prescriptions Reported Meds & Active Scripts Active Furosemide 40 Mg Tab 40 Mg PO DAILY Reported Coumadin (Warfarin) 4 Mg Tab 4 Mg PO DAILY [Occuvite Lutein] 2 Mg PO DAILY Vitamin D-1000 (Cholecalciferol) 1,000 Unit Tab 1,000 Units PO DAILY Pantoprazole (Pantoprazole Sodium) 40 Mg Tab 40 Mg PO DAILY Calcitriol 0.25 Mcg Cap 0.25 Mcg PO DAILY Flomax (Tamsulosin HCl) 0.4 Mg Cap 0.4 Mg PO BID Lovaza (Pjgyg-6-Hgpj Ethyl Esters) 1 Gm Cap 1 Gm PO BID Zetia (Ezetimibe) 10 Mg Tab 10 Mg PO HS Hydralazine (Hydralazine HCl) 100 Mg Tab 50 Mg PO BID Take with meals Losartan (Losartan Potassium) 25 Mg Tab 25 Mg PO DAILY Amlodipine (Amlodipine Besylate) 10 Mg Tab 10 Mg PO DAILY Bystolic (Nebivolol) 5 Mg Tab 5 Mg PO DAILY Prednisone 5 Mg Tab 5 Mg PO DAILY Mycophenolate (Mycophenolate Mofetil) 500 Mg Tab 500 Mg PO BID Tacrolimus 1 Mg Cap 1 Mg PO DAILY Tacrolimus 0.5 Mg Cap 0.5 Mg PO HS Humulin 70-30 Kwikpen Pen Inj (Insulin NPH Isophane-Reg (Human) 70-30 Inj) 300 Unit/3 Ml Pen 20-25 Unit SQ BID Review of Systems Except as stated in HPI: all other systems reviewed are Neg General / Constitutional: No: Fever HENT: No: Lightheadedness Cardiovascular: No: Chest Pain or Discomfort Respiratory: No: Shortness of Breath Gastrointestinal: No: Nausea, Vomiting, Abdominal Pain Genitourinary: Positive: Hematuria, No: Dysuria Neurologic: No: Dizziness Physical Exam Narrative GENERAL: Awake, alert, pleasant 76-year-old male who appears his stated age and is in no acute respiratory distress. SKIN: Focused skin assessment warm/dry. HEAD: Atraumatic. Normocephalic. EYES: Pupils equal and round. No scleral icterus. No injection or drainage. ENT: No nasal bleeding or discharge. Mucous membranes pink and moist. NECK: Trachea midline. No JVD. CARDIOVASCULAR: Heart rate in the 80s. RESPIRATORY: No accessory muscle use. Clear to auscultation. Breath sounds equal bilaterally. GASTROINTESTINAL: Abdomen soft, right lower quadrant kidney transplant. Genitourinary: Circumcised phallus. Tenderness around the right testicle and right epididymis with mild edema noted. MUSCULOSKELETAL: No obvious deformities. No clubbing. No cyanosis. No edema. NEUROLOGICAL: Awake and alert. No obvious cranial nerve deficits. Motor grossly within normal limits. Normal speech. PSYCHIATRIC: Appropriate mood and affect; insight and judgment normal. Data Data Last Documented VS Vital Signs Date Time Temp Pulse Resp B/P (MAP) Pulse Ox O2 Delivery O2 Flow Rate FiO2 09/08/17 17:02 79 16 150/70 (96) 80 Room Air 09/08/17 13:45 98.3 Orders Orders Complete Blood Count With Diff (09/08/17 14:31) Basic Metabolic Panel (Bmp) (09/08/17 14:31) Act Partial Throm Time (Ptt) (09/08/17 14:31) Prothrombin Time / Inr (Pt) (09/08/17 14:31) Urinalysis - C+S If Indicated (09/08/17 14:31) Us Testicles W Doppler (09/08/17 ) Us Kidney / Transplant (09/08/17 ) Urine Culture (09/08/17 15:05) Ceftriaxone Inj (Rocephin Inj) (09/08/17 16:00) Ed Discharge Order (09/08/17 17:46) Labs Laboratory Tests Test 09/08/17 15:05 White Blood Count 8.4 TH/MM3 Red Blood Count 3.81 MIL/MM3 Hemoglobin 12.1 GM/DL Hematocrit 35.0 % Mean Corpuscular Volume 91.8 FL Mean Corpuscular Hemoglobin 31.7 PG Mean Corpuscular Hemoglobin Concent 34.6 % Red Cell Distribution Width 14.9 % Platelet Count 227 TH/MM3 Mean Platelet Volume 6.5 FL Neutrophils (%) (Auto) 84.4 % Lymphocytes (%) (Auto) 5.6 % Monocytes (%) (Auto) 9.4 % Eosinophils (%) (Auto) 0.4 % Basophils (%) (Auto) 0.2 % Neutrophils # (Auto) 7.1 TH/MM3 Lymphocytes # (Auto) 0.5 TH/MM3 Monocytes # (Auto) 0.8 TH/MM3 Eosinophils # (Auto) 0.0 TH/MM3 Basophils # (Auto) 0.0 TH/MM3 CBC Comment DIFF FINAL Differential Comment Prothrombin Time 48.8 SEC Prothromb Time International Ratio 4.9 RATIO Activated Partial Thromboplast Time 69.0 SEC Urine Color LIGHT-RED Urine Turbidity HAZY Urine pH 6.0 Urine Specific [place] 1.007 Urine Protein 30 mg/dL Urine Glucose (UA) NEG mg/dL Urine Ketones NEG mg/dL Urine Occult Blood LARGE Urine Nitrite NEG Urine Bilirubin NEG Urine Urobilinogen LESS THAN 2.0 MG/DL Urine Leukocyte Esterase LARGE Urine RBC /hpf Urine WBC 82 /hpf Urine WBC Clumps FEW Urine Squamous Epithelial Cells 1 /hpf Urine Bacteria MANY /hpf Microscopic Urinalysis Comment CULTURE INDICATED Blood Urea Nitrogen 28 MG/DL Creatinine 1.65 MG/DL Random Glucose 133 MG/DL Calcium Level 8.7 MG/DL Sodium Level 139 MEQ/L Potassium Level 4.4 MEQ/L Chloride Level 106 MEQ/L Carbon Dioxide Level 24.0 MEQ/L Anion Gap 9 MEQ/L Estimat Glomerular Filtration Rate 41 ML/MIN [facility] Medical Decision Making Medical Screen Exam Complete: Yes Emergency Medical Condition: Yes Medical Record Reviewed: Yes Interpretation(s) Last Impressions Scrotum Ultrasound 09/08/17 0000 Signed Impressions: Service Date/Time: Friday, September 08, 2017 16:26 - CONCLUSION: 1. No evidence for torsion. Small to moderate bilateral hydroceles. 2. Right-sided mild epididymal enlargement and increased blood could be characteristic of an epididymitis. Jakob Eastman MD Renal Ultrasound 09/08/17 0000 Signed Impressions: Service Date/Time: Friday, September 08, 2017 16:12 - CONCLUSION: 1. No hydronephrosis. Resistive indices within normal limits. Jakob Eastman MD Laboratory Tests Test 09/08/17 15:05 White Blood Count 8.4 TH/MM3 Red Blood Count 3.81 MIL/MM3 Hemoglobin 12.1 GM/DL Hematocrit 35.0 % Mean Corpuscular Volume 91.8 FL Mean Corpuscular Hemoglobin 31.7 PG Mean Corpuscular Hemoglobin Concent 34.6 % Red Cell Distribution Width 14.9 % Platelet Count 227 TH/MM3 Mean Platelet Volume 6.5 FL Neutrophils (%) (Auto) 84.4 % Lymphocytes (%) (Auto) 5.6 % Monocytes (%) (Auto) 9.4 % Eosinophils (%) (Auto) 0.4 % Basophils (%) (Auto) 0.2 % Neutrophils # (Auto) 7.1 TH/MM3 Lymphocytes # (Auto) 0.5 TH/MM3 Monocytes # (Auto) 0.8 TH/MM3 Eosinophils # (Auto) 0.0 TH/MM3 Basophils # (Auto) 0.0 TH/MM3 CBC Comment DIFF FINAL Differential Comment Prothrombin Time 48.8 SEC Prothromb Time International Ratio 4.9 RATIO Activated Partial Thromboplast Time 69.0 SEC Urine Color LIGHT-RED Urine Turbidity HAZY Urine pH 6.0 Urine Specific [place] 1.007 Urine Protein 30 mg/dL Urine Glucose (UA) NEG mg/dL Urine Ketones NEG mg/dL Urine Occult Blood LARGE Urine Nitrite NEG Urine Bilirubin NEG Urine Urobilinogen LESS THAN 2.0 MG/DL Urine Leukocyte Esterase LARGE Urine RBC /hpf Urine WBC 82 /hpf Urine WBC Clumps FEW Urine Squamous Epithelial Cells 1 /hpf Urine Bacteria MANY /hpf Microscopic Urinalysis Comment CULTURE INDICATED Blood Urea Nitrogen 28 MG/DL Creatinine 1.65 MG/DL Random Glucose 133 MG/DL Calcium Level 8.7 MG/DL Sodium Level 139 MEQ/L Potassium Level 4.4 MEQ/L Chloride Level 106 MEQ/L Carbon Dioxide Level 24.0 MEQ/L Anion Gap 9 MEQ/L Estimat Glomerular Filtration Rate 41 ML/MIN Differential Diagnosis Differential diagnosis includes UTI, epididymitis, prostatitis, medication side effect, coagulopathy, bladder cancer, rejection. Narrative Course IV was established, labs are drawn and sent, and the patient was placed on cardiac telemetry monitoring and continuous pulse oximetry monitoring. Ultrasound of the testicle and transplant kidney were ordered. CBC was sent to lab. INR was 4.9. UA reveals innumerable RBCs and 83 wbc's. Creatinine is 1.65, appears to be baseline. The patient's ultrasound of the scrotum does reveal epididymitis on the right, ultrasound of the transplanted kidney reveals normal indices. The patient received Rocephin 1 g intravenously for epididymitis, may be a line. The patient is already on Cipro. I discussed the patient with the on-call medical unit secretary for Dr. Benton, Dr. Vasquez. After discussion was agreed we would keep the patient on Cipro and he would follow-up with [facility] this week. The patient will be provided a copy of his lab results and ultrasound results at discharge. Return for no urine output of 8 hours duration or greater. Diagnosis Primary Impression: Epididymitis Additional Impression: UTI (urinary tract infection) Qualified Codes: N39.0 - Urinary tract infection, site not specified; R31.9 - Hematuria, unspecified Patient Instructions: General Instructions Additional Instructions: Please provide a patient a copy of his ultrasound results and lab results at discharge. Follow-up with your urologist and medical unit secretary this week. Return for no urine output. Med/Other Pt SpecificInfo: Prescription(s) given Scripts Ciprofloxacin (Cipro) 500 Mg Tab 500 MG PO BID for Infection for 10 Days, #20 TAB 0 Refills Prov: Joshua Chavarria MD 09/08/17 Disposition: 01 DISCHARGE HOME Condition: Stable Joshua Chavarria MD Sep 08, 2017 15:57
[2017-09-08] MEDS ORDERED: cefTRIAXone INJ 1,000 MG in SODIUM CHLORIDE 0.9% INJ 100 ML IV ONE (16:00)
[2017-09-08 17:02] VITALS: BP 150/70; PULSE 79; RESP 16; O2SAT 80
--- NOTE | 2017-09-08 17:08 | RADRPT ---
EXAM DATE/TIME: 09/08/2017 16:12 [facility] COMPARISON: No previous studies available for comparison. INDICATIONS : Hematuria. MEDICAL HISTORY : Hypercholesterolemia. Hypertension. Hearing loss. Skin cancer. Anticoagulant therapy. Heart murmur. P rostate cancer. Renal railure. Radiation therapy. Diabetes. Measles. Blood transfusion. SURGICAL HISTORY : Coronary artery stent. Partial parathyroidectomy. Aortic valve replacement. Right lower quadrant justice l transplant. Mohs surgery. Left AV fistula. Small bowel repair. ENCOUNTER: Subsequent ACUITY: 1 day PAIN SCORE: 0/10 LOCATION: Right lower quadrant MEASUREMENTS: TRANSPLANT KIDNEY: 11.6 x 6.0 x 6.1 cm LOCATION: Right lower quadrant. PREVIOUS ULTRASOUND: Feb 21 2017 PREVIOUS ARCUATE ARTERIES INDEX: Upper - 0.8 Mid - 0.8 Lower - 0.8 ARCUATE ARTERIES RESISTIVE INDEX: Upper - 0.7 Mid - 0.7 Lower - 0.8 RA/EIA Ratio: 0.5 MAIN RENAL ARTERY VELOCITY: (cm/sec): 146.4 MAIN RENAL VEIN: Patent EXTERNAL ILIAC ARTERY VELOCITY (cm/sec): 266.5 * NORMAL DOPPLER FINDINGS Arcuate arteries - RI = 0.6 - 0.8 Renal artery = under 200 cm/sec Renal vein = May be monophasic with continuous flow or demonstrate some pulsatility with cardiac cycl e FINDINGS: TRANSPLANT KIDNEY: Normal cortical thickness and echotexture. No hydronephrosis, stone, or mass. No peritransplant flu id collection. URINARY BLADDER: Within normal limits given the degree of distension. CONCLUSION: 1. No hydronephrosis. Resistive indices within normal limits. Jakob Eastman MD on September 08, 2017 at 17:03 Board Certified Radiologist. This report was verified electronically.
--- NOTE | 2017-09-08 17:10 | RADRPT ---
EXAM DATE/TIME: 09/08/2017 16:26 [facility] COMPARISON: No previous studies available for comparison. INDICATIONS : Testicular pain. MEDICAL HISTORY : Hypercholesterolemia. Hypertension. Hearing loss. Skin cancer. Anticoagulant therapy. Heart murmur. P rostate cancer. Renal railure. Radiation therapy. Diabetes. Measles. Blood transfusion. SURGICAL HISTORY : Coronary artery stent. Partial parathyroidectomy. Aortic valve replacement. Right lower quadrant justice l transplant. Mohs surgery. Left AV fistula. Small bowel repair. ENCOUNTER: Initial ACUITY: 1 day PAIN SCORE: 3/10 LOCATION: Bilateral testicles. MEASUREMENTS: RIGHT TESTICLE: 3.6 x 2.2 x 2.2cm LEFT TESTICLE: 4.1 x 2.8 x 2.1cm FINDINGS: Positive flow to both testicles. No testicular mass. Moderate bilateral hydroceles. Right sided mild epididymal enlargement and increased blood flow. CONCLUSION: 1. No evidence for torsion. Small to moderate bilateral hydroceles. 2. Right-sided mild epididymal enlargement and increased blood could be characteristic of an epididym itis. Jakob Eastman MD on September 08, 2017 at 17:05 Board Certified Radiologist. This report was verified electronically.
[2017-09-08] MEDS ORDERED: CIPR-9 PO (17:49)
== END 2017-09-08 18:17 | disposition home or self-care (01) ==
LOC: NEPE 13:21
DX: N45.1 Epididymitis (principal); N39.0 Urinary tract infection, site not specified; B96.20 Unspecified Escherichia coli [E. coli] as the cause of diseases classified elsewhere; E78.00 Pure hypercholesterolemia, unspecified; I12.9 Hypertensive chronic kidney disease with stage 1 through stage 4 chronic kidney disease, or unspecified chronic kidney disease; E11.22 Type 2 diabetes mellitus with diabetic chronic kidney disease; N18.9 Chronic kidney disease, unspecified; Z94.0 Kidney transplant status
CPT/HCPCS: 76776; 76870; 80048; 81001; 85025; 85610; 85730; 87077; 87086; 87186; 93975; 96365; 99284; J0696

== ENCOUNTER 2017-11-08 06:19 | Day surgery (SDC) | payer MEDICARE, BC ==
[~2017-11-08 06:19] MED LIST changes: -ASPI-516 CHEW; +CIPR-9 PO; +COUM4TAB PO
[2017-11-08] MEDS ORDERED: INSULIN HUMAN REGULAR 1,000 UNITS/10 ML VIAL SQ PRN (07:00)
[2017-11-08] MEDS ORDERED: POVIDONE IODINE 5% (ANTISEPSIS KIT) 4 APPLICATIONS EACH NARE PRN (07:00)
[2017-11-08] MEDS ORDERED: CHLORHEXIDINE GLUCONATE 2 % 1 PACK (2 CLOTHS) TOPICAL PRN (07:00)
[2017-11-08] MEDS ORDERED: LACTATED RINGER'S 1000 ML IV PRN (07:00)
[2017-11-08] MEDS ORDERED: SODIUM CHLORID 0.9% 500 ML IV PRN (07:00)
[2017-11-08] MEDS ORDERED: METOPROLOL TARTRATE 25 MG TAB PO PRN (07:00)
--- NOTE | 2017-11-09 11:46 | EKG ---
Date Performed: 11/08/2017 Time Performed: 08:48:04 PTAGE: 76 years EKG: Sinus bradycardia with 1st degree A-V block. Poor R wave progression - probable normal vari ant Abnormal ECG PREVIOUS TRACING : 11/08/2017 06.36 DOCTOR: Stefani Encarnacion Interpretating Date/Time 11/09/2017 11:44:07
--- NOTE | 2017-11-09 11:49 | EKG ---
Date Performed: 11/08/2017 Time Performed: 06:36:46 PTAGE: 76 years EKG: Atrial fibrillation with slow ventricular response. Poor R wave progression - probable norm al variant Abnormal ECG PREVIOUS TRACING : 04/14/2012 23.18 DOCTOR: Stefani Encarnacion Interpretating Date/Time 11/09/2017 11:46:41
== END 2017-11-08 10:00 | disposition home or self-care (01) ==
LOC: HDOC 06:19 → HDIC 06:19 → HDOC 10:00
PROVIDERS: ATTEND Internal Medicine Interventional Cardiology
DX: I48.1 Persistent atrial fibrillation (principal); I10 Essential (primary) hypertension; I25.10 Atherosclerotic heart disease of native coronary artery without angina pectoris; Z79.01 Long term (current) use of anticoagulants
CPT/HCPCS: 92960; 93005